=== PATIENT | female | born 1930 | race African-American/Black ===

== ENCOUNTER 2016-10-22 01:17 | Emergency (ER) | payer MEDICARE, BC ==
[2016-10-22] MEDS ORDERED: DOXYCYCLINE HYCLATE 100 MG TABLET PO ONE (03:55)
[2016-10-22] MEDS ORDERED: CEPHALEXIN 500 MG CAPSULE PO ONE (03:55)
--- NOTE | 2016-10-22 03:57 | ER Document Report ---
ED General - General Chief Complaint: L big toe problem Stated Complaint: FEET SWOLLEN Time Seen by Provider: 10/22/16 02:31 Notes: Patient is an 86-year-old female who presents with concerns of a left great toe infection. Patient has been following with a printing equipment mechanic apprentice for this but has not seen a physician in the past 2 months. Her son brought her to the emergency department tonight as he was concerned that there was purulent drainage coming from the toe. The patient herself notes a dull, aching pain to the area that is worsened by palpation or wearing shoes. Nothing improves the pain. She has had similar infections in the past. She has not had any fever or constitutional symptoms. TRAVEL OUTSIDE OF THE [place] IN LAST 30 DAYS: No - Related Data Allergies/Adverse Reactions: No Known Allergies Allergy (Unverified 01/06/13 15:12) Past Medical History - General Information source: Patient, Relative - Social History Smoking Status: Never Smoker Frequency of alcohol use: None Drug Abuse: None Lives with: Family Family History: Reviewed & Not Pertinent Endocrine Medical History: Reports: Hx Diabetes Mellitus Type 2 Renal/ Medical History: Denies: Hx Peritoneal Dialysis Past Surgical History: Reports: Hx Cholecystectomy, Hx Hysterectomy, Hx Orthopedic Surgery - cervicle spine surgery Review of Systems - Review of Systems Notes: Constitutional: Negative for fever. HENT: Negative for sore throat. Eyes: Negative for visual changes. Cardiovascular: Negative for chest pain. Respiratory: Negative for shortness of breath. Gastrointestinal: Negative for abdominal pain, vomiting or diarrhea. Genitourinary: Negative for dysuria. Musculoskeletal: Negative for back pain. Skin: Positive for purulent drainage from the left great toe with a small amount of surrounding erythema to the dorsal surface of this area. Neurological: Negative for headaches, weakness or numbness. 10 point ROS negative except as marked above and in HPI. Physical Exam - Vital signs Vitals: Temp Pulse Resp BP Pulse Ox 98.3 F 93 16 134/65 H 97 10/22/16 01:23 10/22/16 01:23 10/22/16 01:23 10/22/16 01:23 10/22/16 01:23 Interpretation: Normal Notes: PHYSICAL EXAMINATION: GENERAL: Well-appearing, well-nourished and in no acute distress. HEAD: Atraumatic, normocephalic. EYES: sclera anicteric, conjunctiva are normal. ENT: Moist mucous membranes. NECK: Normal range of motion LUNGS: Normal work of breathing HEART: 2+ DP pulses bilaterally. EXTREMITIES: Left toe has purulent drainage expression underneath the nailbed with a small amount of erythema on the dorsal aspect of the toe. NEUROLOGICAL: No focal neurological deficits. Moves all extremities spontaneously and on command. PSYCH: Normal mood, normal affect. SKIN: Warm, Dry, normal turgor, no rashes or lesions noted. Course - Re-evaluation Re-evalutation: 10/22/16 03:54 Patient presents with signs and symptoms consistent with an infected left great toenail bed. Patient is otherwise well in appearance, no acute distress, no evidence of an ascending cellulitis. Strong 2+ DP pulses bilaterally. She will be started on Keflex and doxycycline. No indication for labs or imaging at this time. She already follows with printing equipment mechanic apprentice and have encouraged her to follow-up closely for additional management. At this time will discharge with return precautions and follow-up recommendations. Verbal discharge instructions given a the bedside and opportunity for questions given. Medication warnings reviewed. Patient is in agreement with this plan and has verbalized understanding of return precautions and the need for primary care follow-up in the next 24-72 hours. - Vital Signs Vital signs: Temp Pulse Resp BP Pulse Ox 97.8 F 84 18 129/55 H 99 10/22/16 04:39 10/22/16 04:39 10/22/16 04:39 10/22/16 04:39 10/22/16 04:39 Discharge - Discharge Clinical Impression: Toe infection Condition: Good Disposition: HOME, SELF-CARE Additional Instructions: The rash is likely due to infection of your skin. You need to take the antibiotics as prescribed. Do not stop even if the rash goes away until you have completed all the antibiotics. You should also return if you develop fevers with temperature greater than 101, persistent vomiting, worsening pain, or have any other symptoms that are concerning to you. Prescriptions: Cephalexin Monohydrate [Keflex 500 mg Capsule] 500 mg PO QID #40 capsule Doxycycline Hyclate 100 mg PO BID #20 tablet
[2016-10-22 04:41] VITALS: BP 129/55
== END 2016-10-22 04:39 | disposition home or self-care (01) ==
LOC: ER 01:17
DX: L08.9 Local infection of the skin and subcutaneous tissue, unspecified (principal); E11.9 Type 2 diabetes mellitus without complications
CPT/HCPCS: 99283; A9270 ×2

== ENCOUNTER 2016-10-23 18:35 | Emergency (ER) | payer MEDICARE, BC ==
[2016-10-23 18:47] VITALS: BP 139/61
--- NOTE | 2016-10-23 23:08 | ER Document Report ---
ED Extremity Problem, Lower - General Information source: Patient, Relative - son TRAVEL OUTSIDE OF THE [place] IN LAST 30 DAYS: No - HPI Location: Great Toe - General Chief Complaint: Toe Injury Stated Complaint: FEET SWELLING,TOE PAIN/DRAINAGE Time Seen by Provider: 10/23/16 22:40 Notes: Patient is an 86 year old female with a history of Diabetes Mellitus Type 2 who presents to the ED with complaints of left great toe pain and depression. Patients son states the patient is not eating, drinking or taking her medication for the past 2 days. Patient states she is depressed about her reverse mortgage. Patients reel assembler is aware of her left great toe infection. Patient states she has a PCP but that he is not aware of her current depression. No other concerns or complaints at this time. PCP: Dr. Frias ([facility]) - Related Data Allergies/Adverse Reactions: No Known Allergies Allergy (Unverified 01/06/13 15:12) Past Medical History - General Information source: Patient - Social History Smoking Status: Unknown if Ever Smoked Family History: Reviewed & Not Pertinent Patient has suicidal ideation: No Patient has homicidal ideation: No Endocrine Medical History: Reports: Hx Diabetes Mellitus Type 2 Renal/ Medical History: Denies: Hx Peritoneal Dialysis Past Surgical History: Reports: Hx Cholecystectomy, Hx Hysterectomy, Hx Orthopedic Surgery - cervicle spine surgery Review of Systems - Review of Systems Constitutional: No symptoms reported EENT: No symptoms reported Cardiovascular: No symptoms reported Respiratory: No symptoms reported Gastrointestinal: No symptoms reported Genitourinary: No symptoms reported Female Genitourinary: No symptoms reported Musculoskeletal: See HPI, Other - left great toe pain Skin: No symptoms reported Hematologic/Lymphatic: No symptoms reported Neurological/Psychological: See HPI, Depression Physical Exam - General General appearance: Appears well, Alert In distress: None - HEENT Head: Normocephalic, Atraumatic Eyes: Normal Extraocular movements intact: Yes Pupils: PERRL - Respiratory Respiratory status: No respiratory distress - Cardiovascular Rhythm: Regular - Abdominal Inspection: Normal - Back Back: Normal - Extremities General upper extremity: Normal inspection, Normal ROM General lower extremity: Normal ROM. No: Normal inspection - see foot exam below Foot: Other - purulent drainage under left great toenail, no erythema - Neurological Neuro grossly intact: Yes Cognition: Normal Orientation: AAOx4 Heladio Coma Scale Eye Opening: Spontaneous [place] Coma Scale Verbal: Oriented Heladio Coma Scale Motor: Obeys Commands Heladio Coma Scale Total: 15 Speech: Normal - Psychological Associated symptoms: Normal affect, Normal mood - Skin Skin Temperature: Warm Skin Moisture: Dry Skin Color: Normal Course - Re-evaluation Re-evalutation: 10/24/16 Patient was infection under her now which she states her doctor is aware of. Patient states that she will take her medications. Patient states that she is recently been depressed and will adjust this with her primary doctor. Patient son agrees to take her home as she eats and takes her medications here in the emergency department. No evidence for worsening infection. Stable for discharge. Follow-up with PMD and reel assembler as instructed. (GENTRY BRADEN) - Vital Signs Vital signs: Temp Pulse Resp BP Pulse Ox 98.3 F 96 13 139/61 H 100 10/23/16 18:46 10/23/16 18:46 10/23/16 18:46 10/23/16 18:46 10/23/16 18:46 Discharge - Discharge Clinical Impression: Toe infection Depression Qualifiers: Depression Type: unspecified Qualified Code(s): F32.9 - Major depressive disorder, single episode, unspecified Condition: Stable Disposition: HOME, SELF-CARE Instructions: Depression ([facility]), Infections ([facility]) Additional Instructions: Please take your medications as prescribed. Please make sure that you are eating and drinking at home. Please follow-up with your primary doctor and your reel assembler this week. Scribe Attestation: 10/24/16 04:01 I personally performed the services described in the documentation, reviewed and edited the documentation which was dictated to the scribe in my presence, and it accurately records my words and actions. (GENTRY BRADEN) Scribe Documentation - Scribe Written by Nirmala:: nirmala Glass, 10/23/2016, [id number] acting as scribe for :: Gerry
[2016-10-23] MEDS ORDERED: DOXYCYCLINE HYCLATE 100 MG TABLET PO ONE (23:51)
== END 2016-10-24 00:35 | disposition home or self-care (01) ==
LOC: ER 18:35
DX: L08.9 Local infection of the skin and subcutaneous tissue, unspecified (principal); F32.9 Major depressive disorder, single episode, unspecified; E11.9 Type 2 diabetes mellitus without complications; Z90.49 Acquired absence of other specified parts of digestive tract; Z90.710 Acquired absence of both cervix and uterus
CPT/HCPCS: 99283; A9270

== ENCOUNTER 2016-10-26 01:59 | Emergency (ER) | payer MEDICARE, BC ==
--- NOTE | 2016-10-26 03:09 | ER Document Report ---
ED General - General Chief Complaint: Shortness Of Breath Stated Complaint: SHORTNESS OF BREATH Time Seen by Provider: 10/26/16 02:25 Notes: Patient is a 86-year-old female presents with complaint of feeling like she is constipated. Patient says she has not been eating much over the last week because she feels constipated. She says she has not had a bowel movement over week. Her daughter is at the bedside and says that she thinks she is on her bowel but she has not been eating. Patient denies abdominal pain. She denies any vomiting. Patient also mentioned that she did have a brief episode tonight where she felt like her breath was being taken away from her. She said she may have had very minimal chest pain associated with the. Patient says when this episode occurred she was emotionally upset at that time. She has no history of coronary disease or heart attacks. She denies recent fevers or infections. I did review her recent visits. She has been seen here recently for depression and also because she has not been eating as much. TRAVEL OUTSIDE OF THE [place] IN LAST 30 DAYS: No - Related Data Allergies/Adverse Reactions: No Known Allergies Allergy (Unverified 01/06/13 15:12) Past Medical History - Social History Smoking Status: Never Smoker Frequency of alcohol use: None Drug Abuse: None Family History: Reviewed & Not Pertinent Patient has suicidal ideation: No Patient has homicidal ideation: No Endocrine Medical History: Reports: Hx Diabetes Mellitus Type 2 Renal/ Medical History: Denies: Hx Peritoneal Dialysis Past Surgical History: Reports: Hx Cholecystectomy, Hx Hysterectomy, Hx Orthopedic Surgery - cervicle spine surgery Review of Systems - Review of Systems Notes: My Normal Review Basic REVIEW OF SYSTEMS: CONSTITUTIONAL : Denies fever, chills, or sweats. Denies recent illness. EENT: Denies eye, ear, throat, or mouth pain or symptoms. Denies nasal or sinus congestion. CARDIOVASCULAR: Tightness which has resolved. RESPIRATORY: Brief episode of shortness of breath which is now resolved. GASTROINTESTINAL: Denies abdominal pain. Denies nausea, vomiting, or diarrhea. Complains of constipation. GENITOURINARY: Denies difficulty urinating, painful urination, burning, frequency, or blood in urine. MUSCULOSKELETAL: Denies neck or back pain or joint pain or swelling. SKIN: Denies rash or skin lesions. NEUROLOGICAL: Denies altered mental status or loss of consciousness. Denies headache. Denies weakness or paralysis or loss of use of either side. Denies problems with gait or speech. Denies sensory or motor loss. ALL OTHER SYSTEMS REVIEWED AND NEGATIVE. Physical Exam - Vital signs Vitals: Temp Pulse Resp BP Pulse Ox 98.1 F 99 20 158/61 H 98 10/26/16 02:12 10/26/16 02:12 10/26/16 02:12 10/26/16 02:12 10/26/16 02:12 - Notes Notes: General Appearance: Well nourished, alert, cooperative, no acute distress, no obvious discomfort. Vitals: reviewed, See vital signs table. Head: no swelling or tenderness to the head Eyes: PERRL, EOMI, Conjuctiva clear Mouth: No decreasd moisture Throat: No tonsillar inflammation, No airway obstruction, No lymphadenopathy Neck: Supple, no neck tenderness, No thyromegaly Lungs: No wheezing, No rales, No rhonci, No accessory muscle use, good air exchange bilaterally. Heart: Normal rate, Regular rythm, No murmur, no rub Abdomen: Normal BS, soft, No rigidity, No abdominal tenderness, No guarding, no rebound, no abdominal masses, no organomegaly Rectal: No stool in rectal vault. Extremities: strength 5/5 in all extremities, good pulses in all extremities, no swelling or tenderness in the extremities, no edema. Skin: warm, dry, appropriate color, no rash Neuro: speech clear, oriented x 3, normal affect, responds appropriately to questions. Course - Re-evaluation Re-evalutation: 10/26/16 05:49 Patient's laboratory evaluation did show dehydration which is expected being that she has not been eating or drinking recently. We will back informed her that she does not really have a lot of stool burden on her x-ray. I told her that she is not constipated and that she really needs to eat in order for her bowels to start moving again. She has no evidence of obstruction on exam or on the x-ray. She looks well. I did give her a liter of IV fluids here. I informed her and her daughter that extremely important that she does eat and drink. Patient did have a brief episode of shortness of breath and mild chest tightness earlier tonight. He said this did coincide when she was feeling emotional. Her cardiac enzymes were negative. Her EKG is negative. I do not think she needs to be admitted for wall of coronary disease. I do not think to be much benefit from that at her age of 86 and also being that the symptoms seem to be dissipated by an emotional event. Patient is strongly encouraged to return to ER if she does have recurrent chest pain or difficulty breathing, if she has vomiting, if she feels that she is becoming dehydrated again, or she has any abdominal pain. Patient agrees with plan and will be discharged home. Dictation of this chart was performed using voice recognition software; therefore, there may be some unintended grammatical errors. - Vital Signs Vital signs: Temp Pulse Resp BP Pulse Ox 98.1 F 99 16 158/50 H 100 10/26/16 02:12 10/26/16 02:12 10/26/16 05:01 10/26/16 05:01 10/26/16 05:01 - Laboratory Result Diagrams: 10/26/16 03:20 10/26/16 03:20 Laboratory results interpreted by me: 10/26/16 10/26/16 03:20 03:20 MCHC 31.9 L RDW 14.9 H Carbon Dioxide 17 L BUN 29 H Creatinine 2.04 H Est GFR ( Amer) 28 L Est GFR (Non-Af Amer) 23 L Direct Bilirubin 0.6 H - EKG Interpretation by Me Additional EKG results interpreted by me: 10/26/16 03:08 EKG is reviewed and interpreted by me. EKG shows normal sinus rhythm with rate of [address] segment elevation or depression. No ischemic T-wave inversions. MT interval, QRS duration and normal range. QTc interval is prolonged. Discharge - Discharge Clinical Impression: Dehydration, Renal insufficiency, mild Condition: Good Disposition: HOME, SELF-CARE Additional Instructions: Please return to the ER immediately if you have vomiting, any recurrent chest pain, any difficulty breathing, or if you feel unwell. Please follow up closely with your primary care doctor for close reevaluation. Please be sure to eat and drink water. Referrals: MALA LECHUGA MD [Primary Care Provider] - Follow up in 3-5 days
--- NOTE | 2016-10-26 03:20 | RADIOLOGY REPORT (SQ) ---
EXAM DESCRIPTION: KUB/ABDOMEN (SINGLE VIEW) COMPLETED DATE/TIME: 10/26/2016 2:48 am REASON FOR STUDY: constipation COMPARISON: 10/26/2016. NUMBER OF VIEWS: One view. TECHNIQUE: Supine radiographic image of the abdomen acquired. LIMITATIONS: None. FINDINGS: BOWEL GAS PATTERN: Normal bowel gas pattern. No dilated loops. CALCIFICATIONS: Atherosclerosis. SOFT TISSUES: No gross mass or suggestion of organomegaly. HARDWARE: None in the abdomen. BONES: Moderate vacuum disc desiccation of the lower lumbar spine between the L2 and S1 levels. Mild osteoarthritis of bilateral hips. OTHER: Likely skin fold artifact of the right upper abdominal quadrant as correlated with concurrent upright chest radiographs. IMPRESSION: NO RADIOGRAPHIC EVIDENCE FOR ACUTE ABDOMINAL DISEASE. TECHNICAL DOCUMENTATION: JOB ID: [id number] [employer]- All Rights Reserved
--- NOTE | 2016-10-26 03:21 | RADIOLOGY REPORT (SQ) ---
EXAM DESCRIPTION: CHEST SINGLE VIEW COMPLETED DATE/TIME: 10/26/2016 2:53 am REASON FOR STUDY: chest pain COMPARISON: None. EXAM PARAMETERS: NUMBER OF VIEWS: One view. TECHNIQUE: Single frontal radiographic view of the chest acquired. RADIATION DOSE: NA LIMITATIONS: None. FINDINGS: LUNGS AND PLEURA: No opacities, masses or pneumothorax. No pleural effusion. MEDIASTINUM AND HILAR STRUCTURES: No masses. Contour normal. HEART AND VASCULAR STRUCTURES: Heart normal in size. Atherosclerosis. BONES: No acute findings. HARDWARE: None in the chest. OTHER: No other significant finding. IMPRESSION: No acute cardiopulmonary findings. TECHNICAL DOCUMENTATION: JOB ID: [id number]
[2016-10-26 03:29] LABS: ABSOLUTE BASOPHILS # (AUTO) 0.1 10^3/uL (0.0-0.2); ABSOLUTE LYMPHOCYTES (AUTO) 1.1 10^3/uL (0.5-4.7); ABSOLUTE MONOCYTES (AUTO) 0.6 10^3/uL (0.1-1.4); ABSOLUTE NEUT (AUTO) 4.3 10^3/uL (1.7-8.2); EOSINOPHILS % (AUTO) 0.3 % (0-6); HEMATOCRIT 37.8 % (36.0-47.0); HEMOGLOBIN 12.1 g/dL (12.0-15.5); HGB HCT DIFFERENCE -1.5; LYMPHOCYTES % (AUTO) 17.9 % (13-45); MEAN CORPUSCULAR HEMOGLOBIN 27.6 pg (27.0-33.4); MEAN CORPUSCULAR HGB CONC 31.9 g/dL (32.0-36.0); MEAN CORPUSCULAR VOLUME 86 fl (80-97); MONOCYTES % (AUTO) 10.1 % (3-13); RED BLOOD COUNT 4.38 10^6/uL (3.72-5.28); RED CELL DISTRIBUTION WIDTH 14.9 % (11.5-14.0); SEGMENTED NEUTROPHILS % (AUTO) 70.7 % (42-78); WHITE BLOOD COUNT 6.1 10^3/uL (4.0-10.5)
[2016-10-26 03:50] LABS: ALANINE AMINOTRANSFERASE 23 U/L (9-52); ALBUMIN 4.1 g/dL (3.5-5.0); ALKALINE PHOSPHATASE 82 U/L (38-126); ANION GAP 19 (5-19); ASPARTATE AMINO TRANSFERASE 29 U/L (14-36); BILIRUBIN,DIRECT 0.6 mg/dL (0.0-0.4); BILIRUBIN,TOTAL 0.7 mg/dL (0.2-1.3); BLOOD UREA NITROGEN 29 mg/dL (7-20); CALCIUM 9.7 mg/dL (8.4-10.2); CARBON DIOXIDE 17 mmol/L (22-30); CHLORIDE 106 mmol/L (98-107); CREATINE KINASE 54 U/L (30-135); CREATININE RESULT 2.04 mg/dL (0.52-1.25); GLUCOSE 83 mg/dL (75-110); POTASSIUM 4.6 mmol/L (3.6-5.0); SODIUM 141.5 mmol/L (137-145); TOTAL PROTEIN 7.5 g/dL (6.3-8.2)
[2016-10-26 04:02] LABS: CREATINE KINASE MB 1.12 ng/mL (<4.55); TROPONIN I 0.028 ng/mL
[2016-10-26] MEDS ORDERED: NORMAL SALINE 1000 ML 1,000 ML IV ONE (04:32)
[2016-10-26 05:40] VITALS: BP 158/50
--- NOTE | 2016-10-26 09:16 | EKG REPORT ---
SEVERITY:- ABNORMAL ECG - SINUS RHYTHM SHORT OH INTERVAL, ACCELERATED AV CONDUCTION LEFT ANTERIOR FASCICULAR BLOCK OLD ANTERIOR SD BORDERLINE PROLONGED QT INTERVAL : Confirmed by: Brando Bui MD 26-Oct-2016 09:15:42
== END 2016-10-26 06:03 | disposition home or self-care (01) ==
LOC: ER 01:59
DX: E86.0 Dehydration (principal); N28.9 Disorder of kidney and ureter, unspecified; R07.89 Other chest pain; R06.02 Shortness of breath; R19.8 Other specified symptoms and signs involving the digestive system and abdomen; E11.9 Type 2 diabetes mellitus without complications
CPT/HCPCS: 36415; 71010; 74000; 80053; 82550; 82553; 84484; 85025; 93005; 93010; 99285

== ENCOUNTER 2017-07-23 16:01 | Emergency (ER) | payer MEDICARE, BC ==
--- NOTE | 2017-07-23 17:36 | ER Document Report ---
ED Medical Screen (RME) - General Chief Complaint: Altered Mental Status Stated Complaint: ALTERED MENTAL STATUS Time Seen by Provider: 07/23/17 17:29 TRAVEL OUTSIDE OF THE [place] IN LAST 30 DAYS: No - HPI Notes: 07/23/17 17:32 Patient is an 87-year-old female with a history of Alzheimer's dementia, hypertension, peripheral vascular disease (on Plavix) who presents to the ED with daughter with concern of changes in behavior over the last several days. Daughter states that she has not been eating as much food and has not been taking her medicines which is unlike her. Daughter also states that she has had intermittent sharp headaches on the right side. Daughter states that the last time she acted like this was when she had a urinary infection. Daughter states that she does like to hold her urine for long periods of time. She otherwise has not had any other recent illness. Denies any recent falls. No prev h/o CVA, [place]. Per daughter as well: Denies any fever, head injury, neck pain, URI, sore throat, chest pain, REEDER, palpitations, syncope, cough, shortness of breath, wheeze, dyspnea, abdominal pain, nausea/vomiting/diarrhea, loss of control of bowel or bladder, muscle paralysis/weakness, or rash. I have treated and performed a rapid initial assessment of this patient. A comprehensive ED assessment and evaluation of the patient, analysis of test results and completion of medical decision making process will be conducted by additional ED providers. PHYSICAL EXAMINATION: GENERAL: Well-appearing, well-nourished and in no acute distress. Alert, pleasant, smiling, happy. Answers questions appropriately within reason for her dementia. Eyes: PERRLA, EOMI. LUNGS: Breath sounds clear to auscultation bilaterally and equal. No wheezes rales or rhonchi. HEART: Regular rate and rhythm Extremities: No cyanosis, clubbing, or edema b/l. NEUROLOGICAL: Normal speech. Cranial nerves grossly intact. PSYCH: Normal mood, normal affect. - Related Data Allergies/Adverse Reactions: No Known Allergies Allergy (Verified 07/23/17 16:03) Past Medical History Endocrine Medical History: Reports: Hx Diabetes Mellitus Type 2 Renal/ Medical History: Denies: Hx Peritoneal Dialysis Past Surgical History: Reports: Hx Cholecystectomy, Hx Hysterectomy, Hx Orthopedic Surgery - cervicle spine surgery - Immunizations Hx Diphtheria, Pertussis, Tetanus Vaccination: Yes Physical Exam - Vital signs Vitals: Temp Pulse Resp BP Pulse Ox 98.1 F 96 18 194/73 H 100 07/23/17 16:08 07/23/17 16:08 07/23/17 16:08 07/23/17 16:08 07/23/17 16:08 Course - Vital Signs Vital signs: Temp Pulse Resp BP Pulse Ox 98.1 F 96 18 194/73 H 100 07/23/17 16:08 07/23/17 16:08 07/23/17 16:08 07/23/17 16:08 07/23/17 16:08
[2017-07-23 18:23] LABS: ABSOLUTE BASOPHILS # (AUTO) 0.1 10^3/uL (0.0-0.2); ABSOLUTE EOSINOPHILS # (AUTO) 0.1 10^3/uL (0.0-0.6); ABSOLUTE MONOCYTES (AUTO) 0.5 10^3/uL (0.1-1.4); BASOPHILS % (AUTO) 0.9 % (0-2); EOSINOPHILS % (AUTO) 1.1 % (0-6); HEMATOCRIT 33.2 % (36.0-47.0); HEMOGLOBIN 10.9 g/dL (12.0-15.5); LYMPHOCYTES % (AUTO) 15.3 % (13-45); MEAN CORPUSCULAR HEMOGLOBIN 28.4 pg (27.0-33.4); MEAN CORPUSCULAR HGB CONC 32.7 g/dL (32.0-36.0); MEAN CORPUSCULAR VOLUME 87 fl (80-97); MONOCYTES % (AUTO) 7.3 % (3-13); PLATELET COUNT 408 10^3/uL (150-450); RED BLOOD COUNT 3.82 10^6/uL (3.72-5.28); RED CELL DISTRIBUTION WIDTH 14.5 % (11.5-14.0); SEGMENTED NEUTROPHILS % (AUTO) 75.4 % (42-78); TOTAL CELLS COUNTED % (AUTO) 100 %; WHITE BLOOD COUNT 6.7 10^3/uL (4.0-10.5)
--- NOTE | 2017-07-23 18:30 | RADIOLOGY REPORT (SQ) ---
EXAM DESCRIPTION: CT HEAD WITHOUT COMPLETED DATE/TIME: 07/23/2017 6:12 pm REASON FOR STUDY: AMS per family COMPARISON: None. TECHNIQUE: Axial images acquired through the brain without intravenous contrast. Images reviewed wi th bone, brain and subdural windows. Additional sagittal and coronal reconstructions were generated. Images stored on PACS. All CT scanners at this facility use dose modulation, iterative reconstruction, and/or weight based d osing when appropriate to reduce radiation dose to as low as reasonably achievable (ALARA). [facility]: Dose Right [facility]: CareDose [facility]: Dose Right [facility]: Teradose 4D [facility]: [employer] RADIATION DOSE: CT Rad equipment meets quality standard of care and radiation dose reduction techniq ues were employed. CTDIvol: 53.2 mGy. DLP: 937 mGy-cm. mGy. LIMITATIONS: None. FINDINGS: VENTRICLES: Normal size and contour. CEREBRUM: No masses. No hemorrhage. No midline shift. No evidence for acute infarction. Few scatte red areas of low density in the white matter most likely chronic small vessel ischemic changes. CEREBELLUM: No masses. No hemorrhage. No alteration of density. No evidence for acute infarction. EXTRAAXIAL SPACES: No fluid collections. No masses. ORBITS AND GLOBE: No intra- or extraconal masses. Normal contour of globe without masses. CALVARIUM: No fracture. PARANASAL SINUSES: No fluid or mucosal thickening. SOFT TISSUES: No mass or hematoma. OTHER: No other significant finding. IMPRESSION: MILD CHRONIC MICROVASCULAR ISCHEMIA. NO ACUTE IMAGING FINDINGS IN THE BRAIN. EVIDENCE OF ACUTE STROKE: NO. COMMENT: Quality ID # [id number]: Final reports with documentation of one or more dose reduction techniques (e.g., Automated exposure control, adjustment of the mA and/or kV according to patient size, use of iterative reconstruction technique) TECHNICAL DOCUMENTATION: JOB ID: [id number] [employer]- All Rights Reserved Reading location - IP/workstation name: [email or web address]
[2017-07-23 18:37] LABS: INTERNATIONAL RATION (INR) 0.91
[2017-07-23 18:38] LABS: PARTIAL THROMBOPLASTIN TIME 36.7 SEC (23.5-35.8)
[2017-07-23 18:49] LABS: ALANINE AMINOTRANSFERASE 16 U/L (9-52); ALBUMIN 4.5 g/dL (3.5-5.0); ALKALINE PHOSPHATASE 117 U/L (38-126); ANION GAP 14 (5-19); APPEARANCE,URINE SLIGHTLY-CLOUDY; ASPARTATE AMINO TRANSFERASE 27 U/L (14-36); BILIRUBIN,DIRECT 0.4 mg/dL (0.0-0.4); BILIRUBIN,TOTAL 0.5 mg/dL (0.2-1.3); BILIRUBIN,URINE NEGATIVE (NEGATIVE); BLOOD UREA NITROGEN 15 mg/dL (7-20); CALCIUM 9.8 mg/dL (8.4-10.2); CARBON DIOXIDE 24 mmol/L (22-30); CHLORIDE 101 mmol/L (98-107); COLOR,URINE YELLOW; GLUCOSE 167 mg/dL (75-110); GLUCOSE, URINE NEGATIVE (NEGATIVE); KETONES,URINE NEGATIVE (NEGATIVE); LEUKOCYTE ESTERASE,URINE LARGE (NEGATIVE); NITRITE,URINE NEGATIVE (NEGATIVE); POTASSIUM 4.7 mmol/L (3.6-5.0); PROTEIN,URINE 100 mg/dL (NEGATIVE); SODIUM 138.8 mmol/L (137-145); UROBILINOGEN,URINE NEGATIVE mg/dL (<2.0)
--- NOTE | 2017-07-23 19:14 | ER Document Report ---
ED General - General Chief Complaint: Altered Mental Status Stated Complaint: ALTERED MENTAL STATUS Time Seen by Provider: 07/23/17 17:29 Notes: 87-year-old female. History of dementia. Increasing mental status issues as of recent. More confused. Today she was at [employer] restaurant and did not want to leave. Took her daughter approximately 2 hours to convince her they needed to go. They missed a doctor's appointment. She was recently seen in the emergency department in the [facility] area. She had a head CT which was unremarkable but no labs her urinalysis was obtained. Daughter states that she has had altered mental status before from urinary tract infections as well as some electrolyte abnormalities. Patient denies any complaints at this time. States that she was recently forced to move to [place] from her home town of [facility] because her daughter needed to be with her at all times. Patient is unhappy about having to leave her home town and would rather be back here. She is also does not want to take any of her regular medications. Daughter states that it is full-time job getting her to take her medications. Had a recent stent placed in the right iliac artery and is scheduled to have a stent in the left iliac artery due to arteriosclerosis with moderate occlusion. TRAVEL OUTSIDE OF THE U[place] IN LAST 30 DAYS: No - Related Data Allergies/Adverse Reactions: No Known Allergies Allergy (Verified 07/23/17 16:03) Past Medical History - General Information source: Patient, Relative - Social History Smoking Status: Never Smoker Chew tobacco use (# tins/day): No Frequency of alcohol use: None Drug Abuse: None Lives with: Family Family History: Reviewed & Not Pertinent Patient has suicidal ideation: No Patient has homicidal ideation: No - Past Medical History Cardiac Medical History: Reports: Hx Hypercholesterolemia Endocrine Medical History: Reports: Hx Diabetes Mellitus Type 2 Renal/ Medical History: Denies: Hx Peritoneal Dialysis Psychiatric Medical History: Reports: Hx Depression Past Surgical History: Reports: Hx Cholecystectomy, Hx Hysterectomy, Hx Orthopedic Surgery - cervicle spine surgery, Hx Vascular Surgery - Immunizations Hx Diphtheria, Pertussis, Tetanus Vaccination: Yes Review of Systems - Review of Systems Constitutional: No symptoms reported EENT: No symptoms reported Cardiovascular: No symptoms reported Respiratory: No symptoms reported Gastrointestinal: No symptoms reported Genitourinary: No symptoms reported Female Genitourinary: No symptoms reported Musculoskeletal: No symptoms reported Skin: No symptoms reported Hematologic/Lymphatic: No symptoms reported Neurological/Psychological: No symptoms reported Physical Exam - Vital signs Vitals: Temp Pulse Resp BP Pulse Ox 98.1 F 96 18 194/73 H 100 07/23/17 16:08 07/23/17 16:08 07/23/17 16:08 07/23/17 16:08 07/23/17 16:08 Interpretation: Normal - General General appearance: Appears well, Alert - HEENT Head: Normocephalic, Atraumatic Eyes: Normal Pupils: PERRL - Respiratory Respiratory status: No respiratory distress Chest status: Nontender Breath sounds: Normal Chest palpation: Normal - Cardiovascular Rhythm: Regular Heart sounds: Normal auscultation Murmur: No - Abdominal Inspection: Normal Distension: No distension Bowel sounds: Normal Tenderness: Nontender Organomegaly: No organomegaly - Back Back: Normal, Nontender - Extremities General upper extremity: Normal inspection, Nontender, Normal color, Normal ROM , Normal temperature General lower extremity: Normal inspection, Nontender, Normal color, Normal ROM , Normal temperature, Normal weight bearing, Other - Slightly diminished pulses of the left dorsalis pedis. Right dorsalis pedis and posterior tibialis palpable. No cold extremities though. Warm bilaterally. No open lesions.. No : Maria Esther's sign - Neurological Neuro grossly intact: Yes Cognition: Short term memory loss Heladio Coma Scale Eye Opening: Spontaneous Heladio Coma Scale Verbal: Oriented [place] Coma Scale Motor: Obeys Commands [place] Coma Scale Total: 15 Speech: Normal Motor strength normal: LUE, RUE, LLE, RLE Sensory: Normal Notes: No obvious gross neurological deficits appreciated. Patient does have short- term memory deficit but otherwise unremarkable. - Psychological Associated symptoms: Normal affect, Normal mood - Skin Skin Temperature: Warm Skin Moisture: Dry Skin Color: Normal Course - Re-evaluation Re-evalutation: 07/23/17 19:14 This is a delightful 87-year-old pleasantly demented patient in no acute distress at this time with evidence of a UTI. Labs are pretty much at baseline. No evidence of CVA. Neurological exam unremarkable. No fever. This time will treat with some antibiotics as an outpatient. First dose today. Will have culture added. Advised to follow-up with regular doctor. Family members are comfortable with this plan. Will DC shortly. - Vital Signs Vital signs: Temp Pulse Resp BP Pulse Ox 98.1 F 96 18 194/73 H 100 07/23/17 16:08 07/23/17 16:08 07/23/17 16:08 07/23/17 16:08 07/23/17 16:08 - Laboratory Result Diagrams: 07/23/17 17:50 07/23/17 17:50 Laboratory results interpreted by me: 07/23/17 07/23/17 07/23/17 17:50 17:50 17:50 Hgb 10.9 L Hct 33.2 L RDW 14.5 H APTT 36.7 H Creatinine 1.56 H Est GFR ( Amer) 38 L Est GFR (Non-Af Amer) 31 L Glucose 167 H Urine Protein Urine Blood Ur Leukocyte Esterase 07/23/17 17:50 Hgb Hct RDW APTT Creatinine Est GFR ( Amer) Est GFR (Non-Af Amer) Glucose Urine Protein 100 H Urine Blood SMALL H Ur Leukocyte Esterase LARGE H Discharge - Discharge Clinical Impression: Urinary tract infection Qualifiers: Urinary tract infection type: site unspecified Hematuria presence: without hematuria Qualified Code(s): N39.0 - Urinary tract infection, site not specified Dementia Qualifiers: Dementia type: unspecified type Dementia behavioral disturbance: without behavioral disturbance Qualified Code(s): F03.90 - Unspecified dementia without behavioral disturbance Condition: Good Disposition: HOME, SELF-CARE Instructions: Nitrofurantoin ([facility]), Urinary Tract Infection ([facility]), High Blood Pressure, Requiring Treatment ([facility]) Additional Instructions: Dementia The exam shows a decrease in mental ability called dementia. Signs of dementia include a gradual loss of memory and a decreased ability to reason and solve problems. Personality changes, hostility, lack of self-care, and loss of bladder or bowel control are later signs of dementia. In these later stages, patients may become confused, lost, fearful, or agitated, even in familiar places. Alzheimer's disease is the most common type of dementia. It has no known cause or specific treatment. Other causes include alcohol and drug abuse, medication effects (especially tranquilizers and sleeping pills), strokes, head injuries, and brain tumors. Sometimes severe depression in an elderly person is mistaken for dementia, and this can be treated if recognized. A complete medical evaluation and ongoing care with a doctor is important. Most people with dementia need help or supervision with daily living. Some may be able to live independently with occasional help; others require foster care or even senior living placement. Alcohol, sedatives, and antihistamines may make the symptoms worse and should be avoided. Alzheimer's disease support groups are available in some communities and can be very valuable to the entire family. Prescription medication can ease the symptoms of Alzheimer's disease in some patients. Please arrange for medical follow-up. Return here if there is a sudden change in mental function, inability to move an arm or leg, inability to speak, fever, or any other significant change. Prescriptions: Amlodipine Besylate 5 mg PO Q12H #60 tab Nitrofurantoin/Nitrofuran Mac [Macrobid 100 mg Capsule] 1 tab PO BID #20 capsule Referrals: NELLIE BEAVER MD [NO LOCAL MD] - Follow up in 3-5 days
[2017-07-23] MEDS ORDERED: NITROFURANTOIN MONOHYD/M-CRYST 100 MG CAPSULE PO ONE (19:15)
[2017-07-23] MEDS ORDERED: CLONIDINE HCL 0.1 MG TABLET PO ONE (19:28)
[2017-07-23] MEDS ORDERED: DIAZEPAM 5 MG TABLET PO ONE (19:30)
[2017-07-23 21:05] VITALS: BP 155/78
== END 2017-07-23 21:05 | disposition home or self-care (01) ==
LOC: ER 16:01
DX: N39.0 Urinary tract infection, site not specified (principal); F03.90 Unspecified dementia, unspecified severity, without behavioral disturbance, psychotic disturbance, mood disturbance, and anxiety; E78.00 Pure hypercholesterolemia, unspecified; I10 Essential (primary) hypertension; Z90.49 Acquired absence of other specified parts of digestive tract; Z90.710 Acquired absence of both cervix and uterus; Z79.899 Other long term (current) drug therapy
CPT/HCPCS: 99285; 36415; 87086; 83735; 85025; 85610; 85730; 87088; 80053; 81001; 87186; 70450; A9270 ×3; J8499

== ENCOUNTER 2017-07-24 13:13 | Inpatient (IN) | payer MEDICARE, BC ==
--- NOTE | 2017-07-24 13:32 | ER Document Report ---
ED General - General Chief Complaint: Urinary Problem Stated Complaint: BLOOD PRESSURE ISSUES Time Seen by Provider: 07/24/17 13:31 Mode of Arrival: Wheelchair Information source: Patient, Parent TRAVEL OUTSIDE OF THE U.S. IN LAST 30 DAYS: No - HPI Notes: 87-year-old female with a past medical history of dementia presents to the ER today by car with her youngest daughter for a recheck of her urine for UTI and blood pressure medication presents today complaining - Related Data Allergies/Adverse Reactions: ciprofloxacin [From Cipro] Allergy (Verified 07/24/17 13:24) Penicillins Allergy (Verified 07/24/17 13:24) Sulfa (Sulfonamide Antibiotics) Allergy (Verified 07/24/17 13:24) Past Medical History - Social History Smoking Status: Never Smoker Frequency of alcohol use: None Drug Abuse: None Family History: Reviewed & Not Pertinent Patient has suicidal ideation: No Patient has homicidal ideation: No - Past Medical History Cardiac Medical History: Reports: Hx Hypercholesterolemia Endocrine Medical History: Reports: Hx Diabetes Mellitus Type 2 Renal/ Medical History: Denies: Hx Peritoneal Dialysis Psychiatric Medical History: Reports: Hx Depression Past Surgical History: Reports: Hx Cholecystectomy, Hx Hysterectomy, Hx Orthopedic Surgery - cervicle spine surgery, Hx Vascular Surgery - Immunizations Hx Diphtheria, Pertussis, Tetanus Vaccination: Yes Physical Exam - Vital signs Vitals: Temp Pulse Resp BP Pulse Ox 98.2 F 113 H 16 216/66 H 100 07/24/17 13:18 07/24/17 13:18 07/24/17 13:18 07/24/17 13:18 07/24/17 13:18 Course - Vital Signs Vital signs: Temp Pulse Resp BP Pulse Ox 98.2 F 113 H 16 216/66 H 100 07/24/17 13:18 07/24/17 13:18 07/24/17 13:18 07/24/17 13:18 07/24/17 13:18
[2017-07-24] MEDS ORDERED: CLONIDINE HCL 0.1 MG TABLET PO ONE (14:11)
[2017-07-24] MEDS ORDERED: VANCOMYCIN HCL INJ 1000 MG VIAL IV ONE (16:04)
[2017-07-24 16:10] LABS: ABSOLUTE BASOPHILS # (AUTO) 0.1 10^3/uL (0.0-0.2); ABSOLUTE LYMPHOCYTES (AUTO) 0.8 10^3/uL (0.5-4.7); ABSOLUTE MONOCYTES (AUTO) 0.5 10^3/uL (0.1-1.4); ABSOLUTE NEUT (AUTO) 4.8 10^3/uL (1.7-8.2); BASOPHILS % (AUTO) 1.2 % (0-2); EOSINOPHILS % (AUTO) 0.5 % (0-6); HEMATOCRIT 32.8 % (36.0-47.0); HEMOGLOBIN 10.8 g/dL (12.0-15.5); LYMPHOCYTES % (AUTO) 12.5 % (13-45); MEAN CORPUSCULAR HEMOGLOBIN 28.8 pg (27.0-33.4); MEAN CORPUSCULAR HGB CONC 32.8 g/dL (32.0-36.0); MEAN CORPUSCULAR VOLUME 88 fl (80-97); MONOCYTES % (AUTO) 7.9 % (3-13); PLATELET COUNT 362 10^3/uL (150-450); RED BLOOD COUNT 3.73 10^6/uL (3.72-5.28); RED CELL DISTRIBUTION WIDTH 14.1 % (11.5-14.0); SEGMENTED NEUTROPHILS % (AUTO) 77.9 % (42-78); TOTAL CELLS COUNTED % (AUTO) 100 %; WHITE BLOOD COUNT 6.1 10^3/uL (4.0-10.5)
[2017-07-24 16:28] LABS: ALANINE AMINOTRANSFERASE 17 U/L (9-52); ALBUMIN 4.3 g/dL (3.5-5.0); ALKALINE PHOSPHATASE 115 U/L (38-126); ANION GAP 14 (5-19); ASPARTATE AMINO TRANSFERASE 27 U/L (14-36); BILIRUBIN,DIRECT 0.5 mg/dL (0.0-0.4); BILIRUBIN,TOTAL 0.5 mg/dL (0.2-1.3); BLOOD UREA NITROGEN 16 mg/dL (7-20); CALCIUM 9.7 mg/dL (8.4-10.2); CARBON DIOXIDE 23 mmol/L (22-30); CHLORIDE 101 mmol/L (98-107); CREATINE KINASE 97 U/L (30-135); GLUCOSE 161 mg/dL (75-110); POTASSIUM 4.6 mmol/L (3.6-5.0); SODIUM 138.3 mmol/L (137-145); TOTAL PROTEIN 7.9 g/dL (6.3-8.2)
[2017-07-24 16:39] LABS: CREATINE KINASE MB 2.11 ng/mL (<4.55)
[2017-07-24 16:43] LABS: TROPONIN I 0.035 ng/mL
[2017-07-24] MEDS ORDERED: ASPIRIN 81 MG TABLET, CHEWABLE PO ONE (16:49)
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
[2017-07-24 17:03] LABS: AMORPHOUS SEDIMENT,URINE TRACE /HPF; APPEARANCE,URINE CLEAR; BILIRUBIN,URINE NEGATIVE (NEGATIVE); COLOR,URINE STRAW; GLUCOSE, URINE NEGATIVE (NEGATIVE); KETONES,URINE NEGATIVE (NEGATIVE); LEUKOCYTE ESTERASE,URINE NEGATIVE (NEGATIVE); NITRITE,URINE NEGATIVE (NEGATIVE); PROTEIN,URINE 30 mg/dL (NEGATIVE); URINE SPECIFIC GRAVITY 1.003; UROBILINOGEN,URINE NEGATIVE mg/dL (<2.0)
--- NOTE | 2017-07-24 17:31 | PSYCHOLOGICAL NOTE ---
Psych Note - Psych Note Psych Note: Reason for consult: Family requested Consult requested:1510 Evaluation: 1515 patient presents to the ED with daughter. patients daughter states patient was seen in the Ed yesterday for HTN and UTI. states was told by PCP to return to the ED for transfer to [place] for 24 hr care d/t UTI. states patient will not take prescriptions at home. patient noted to have discharge paperwork in hand fro yesterday with prescriptions Clinician attempted evaluation on patient. Patient is very pleasant, light and well groomed. Patient is not orientated to person place time or circumstance. She is unable to identify her age, the date, the president, or her birthdate. She is unable to identify safety information such as 911. And demonstrates limited memory during evaluation and frequently states that she has been upset and not feeling well and if she was feeling well she could easily answer the questions. Patient does state that she does not want her daughter in the room during evaluation. Clinician spoke with the patient's daughter separately. Patient's daughter, Kristal, disclosed the patient has a diagnosis of "severe progressive dementia" and since she is been suffering from a UTI has become aggressive. She disclosed the patient refuses to take her medications and is concerned that without continued observation at the hospital to get medical treatment for her UTI patient will continue to decompensate. Medication recommendations made by psychiatric provider Dr. Ana MD includes: 1. Depakote 250mg twice daily for mood stabilization 2. Buspar 5mg every morning and 10mg every evening for anxiety Diagnosis: Dementia UTI Impression/plan: Patient is cleared from acute psychiatric services. Patient is currently diagnosised with dementia and a UTI. Treating physicians are asked to consider not using benzodiazepines (Ativan, Xanax, Valium, Klonopin), antipsychotics (Haldol, Geodon, Zyprexa), some sleep aids (Elavil, Ambien, trazodone at high doses), narcotic pain medications, and steroids (prednisone) as these have been known to cause and/or exacerbate symptoms (aggression, psychosis, paranoia) in patients with neurodegenerative process. Consulted with Dr. Benjamin regarding the management and care of patient.
[2017-07-24] MEDS ORDERED: ACETAMINOPHEN 325 MG TABLET PO PRN (17:40)
--- NOTE | 2017-07-24 18:01 | PDOC H&P ---
History of Present Illness Admission Date/PCP: 07/24/17 17:32 Patient complains of: Confusion, non compliance History of Present Illness: AGUSTINA HURD is a 87 year old female This patient presents to emergency room apparently after having been seen last night in the ER with a diagnosis of UTI. She was prescribed Macrobid but the prescription was not filled. It appears that I was worried about mother's behavior as she has become more combative. She was seen by psych in the emergency room and that she has been cleared from any acute psychosis. Patient was very pleasant when I saw although unable to tell me any information. Psychiatrist suggested avoiding benzodiazepines, narcotics. Steroids and all the agents. Urinalysis shows no evidence of any infection patient has 0 WBCs negative nitrite and negative leukocyte esterase. Her white count is 6000 and aside from a blood glucose of 262 and a creatinine of 1.6 all her other labs are pretty good Past Medical History Cardiac Medical History: Reports: Hyperlipidema Endocrine Medical History: Reports: Diabetes Mellitus Type 2 Psychiatric Medical History: Reports: Depression Past Surgical History Past Surgical History: Reports: Cholecystectomy, Hysterectomy, Orthopedic Surgery - cervicle spine surgery, Vascular Surgery Social History Information Source: [facility] Records - Patient is unable to provide any history Smoking Status: Never Smoker Family History Family History: Reviewed & Not Pertinent Parental Family History Reviewed: No Children Family History Reviewed: No Sibling(s) Family History Reviewed.: No - Patient unable to provide any history Medication/Allergy Home Medications: Unobtainable [Unobtainable] 07/25/17 Allergies/Adverse Reactions: ciprofloxacin [From Cipro] Allergy (Verified 07/24/17 13:24) Penicillins Allergy (Verified 07/24/17 13:24) Sulfa (Sulfonamide Antibiotics) Allergy (Verified 07/24/17 13:24) Physical Exam Vital Signs: Temp Pulse Resp BP Pulse Ox 98.2 F 113 H 16 110/84 100 07/24/17 13:18 07/24/17 13:18 07/24/17 13:18 07/24/17 14:21 07/24/17 13:18 General appearance: PRESENT: thin - Elderly and frail Head exam: PRESENT: atraumatic Ear exam: PRESENT: normal external ear exam Neck exam: ABSENT: carotid bruit, JVD, lymphadenopathy, thyromegaly Respiratory exam: PRESENT: clear to auscultation andrew. ABSENT: rales, rhonchi, wheezes Cardiovascular exam: PRESENT: RRR. ABSENT: diastolic murmur, rubs, systolic murmur Pulses: PRESENT: normal dorsalis pedis pul GI/Abdominal exam: PRESENT: normal bowel sounds, soft. ABSENT: distended, guarding, mass, organolmegaly, rebound, tenderness Rectal exam: PRESENT: deferred Extremities exam: PRESENT: full ROM. ABSENT: calf tenderness, clubbing, pedal edema Neurological exam: PRESENT: alert, awake, oriented to person, oriented to place Results Laboratory Results: Laboratory 07/24/17 07/24/17 07/24/17 15:35 15:35 15:35 WBC 6.1 RBC 3.73 Hgb 10.8 L Hct 32.8 L MCV 88 MCH 28.8 MCHC 32.8 RDW 14.1 H Plt Count 362 Seg Neutrophils % 77.9 Lymphocytes % 12.5 L Monocytes % 7.9 Eosinophils % 0.5 Basophils % 1.2 Absolute Neutrophils 4.8 Absolute Lymphocytes 0.8 Absolute Monocytes 0.5 Absolute Eosinophils 0.0 Absolute Basophils 0.1 Sodium 138.3 Potassium 4.6 Chloride 101 Carbon Dioxide 23 Anion Gap 14 BUN 16 Creatinine 1.61 H Est GFR ( Amer) 37 L Est GFR (Non-Af Amer) 30 L Glucose 161 H Lactic Acid Calcium 9.7 Total Bilirubin 0.5 Direct Bilirubin 0.5 H Neonat Total Bilirubin Not Reportable Neonat Direct Bilirubin Not Reportable Neonat Indirect Bili Not Reportable AST 27 ALT 17 Alkaline Phosphatase 115 Creatine Kinase 97 CK-MB (CK-2) 2.11 Troponin I 0.035 Total Protein 7.9 Albumin 4.3 Urine Color Urine Appearance Urine pH Ur Specific [place] Urine Protein Urine Glucose (UA) Urine Ketones Urine Blood Urine Nitrite Urine Bilirubin Urine Urobilinogen Ur Leukocyte Esterase Urine WBC (Auto) Urine RBC (Auto) U Hyaline Cast (Auto) Urine Bacteria (Auto) Amorphous Sediment Auto Urine Ascorbic Acid 07/24/17 07/24/17 15:35 16:20 WBC RBC Hgb Hct MCV MCH MCHC RDW Plt Count Seg Neutrophils % Lymphocytes % Monocytes % Eosinophils % Basophils % Absolute Neutrophils Absolute Lymphocytes Absolute Monocytes Absolute Eosinophils Absolute Basophils Sodium Potassium Chloride Carbon Dioxide Anion Gap BUN Creatinine Est GFR ( Amer) Est GFR (Non-Af Amer) Glucose Lactic Acid 1.3 Calcium Total Bilirubin Direct Bilirubin Neonat Total Bilirubin Neonat Direct Bilirubin Neonat Indirect Bili AST ALT Alkaline Phosphatase Creatine Kinase CK-MB (CK-2) Troponin I Total Protein Albumin Urine Color STRAW Urine Appearance CLEAR Urine pH 6.0 Ur Specific [place] 1.003 Urine Protein 30 H Urine Glucose (UA) NEGATIVE Urine Ketones NEGATIVE Urine Blood SMALL H Urine Nitrite NEGATIVE Urine Bilirubin NEGATIVE Urine Urobilinogen NEGATIVE Ur Leukocyte Esterase NEGATIVE Urine WBC (Auto) 0 Urine RBC (Auto) 0 U Hyaline Cast (Auto) 1 Urine Bacteria (Auto) 1+ Amorphous Sediment Auto TRACE Urine Ascorbic Acid NEGATIVE EKG Comments: Sinus Rhythm, no acute changes Assessment & Plan - Diagnosis (1) Dehydration Is this a current diagnosis for this admission?: Yes Plan: Patient will be given cautious IV fluid and will recheck labs in a.m. There is no evidence of a urinary tract infection and I would not place this patient on any antibiotics at this time as it is not indicated (2) Type 2 diabetes mellitus Is this a current diagnosis for this admission?: Yes Plan: We will place on sliding scale insulin (3) Dementia Qualifiers: Dementia type: Alzheimer's disease Alzheimer's disease onset: unspecified onset Is this a current diagnosis for this admission?: Yes Plan: Apparently with agitation and patient has been seen by the psychiatric service with no intervention planned Patient baseline is unknown and there was no family present at the time of my exam however she did seem to be appropriate for age and given the fact that she has dementia - Time Time Spent: 30 to 50 Minutes Medications reviewed and adjusted accordingly: Yes Anticipated discharge: Home Within: within 24 hours - Inpatient Certification Based on my medical assessment, after consideration of the patient's comorbidities, presenting symptoms, or acuity I expect that the services needed warrant INPATIENT care.: Yes Medical Necessity: Need For IV Fluids - Plan Summary Plan Summary: Unable to obtain CODE STATUS as patient unable to provide these and no family is available.
--- NOTE | 2017-07-24 21:57 | EKG REPORT ---
SEVERITY:- ABNORMAL ECG - SINUS RHYTHM SHORT TX INTERVAL, ACCELERATED AV CONDUCTION LEFT ANTERIOR FASCICULAR BLOCK LEFT VENTRICULAR HYPERTROPHY ANTERIOR Q WAVES, POSSIBLY DUE TO LVH : Confirmed by: Santos Conner 24-Jul-2017 21:56:46
[2017-07-25 09:16] LABS: ANION GAP 14 (5-19); BLOOD UREA NITROGEN 21 mg/dL (7-20); CALCIUM 9.4 mg/dL (8.4-10.2); CARBON DIOXIDE 19 mmol/L (22-30); CHLORIDE 105 mmol/L (98-107); GLUCOSE 143 mg/dL (75-110); POTASSIUM 4.5 mmol/L (3.6-5.0); SODIUM 137.9 mmol/L (137-145)
[2017-07-25] MEDS: DOCUSATE SODIUM 100 MG CAPSULE PO SCH (10:22)
[2017-07-25] MEDS: ENOXAPARIN SODIUM INJ 30 MG/0.3 ML DISP.SYRIN SUBCUT SCH (10:23)
[2017-07-25] MEDS: DEXTROSE 5%-1/2 NORMAL SALINE 1,000 ML IV PRN (10:28)
[2017-07-25] MEDS ORDERED: AMLODIPINE BESYLATE 5 MG TABLET PO ONE (12:15)
[2017-07-25] MEDS ORDERED: (PENDING PHARMACY ID) (Cyclobenzaprine Hcl [Flexeril 5 Mg Tablet] 5 MG) PO PRN (15:19)
[2017-07-25] MEDS ORDERED: GABAPENTIN 100 MG CAPSULE PO PRN (15:19)
[2017-07-25] MEDS ORDERED: DIAZEPAM 5 MG TABLET PO PRN (15:19)
[2017-07-25] MEDS ORDERED: CYCLOBENZAPRINE HCL 10 MG TABLET PO PRN (15:26)
--- NOTE | 2017-07-25 17:07 | PDOC PROGRESS REPORT ---
Subjective Progress Note for:: 07/25/17 Subjective:: Patient is seen on rounds. She is resting in bed. She denies any complaints. Daughters are at bedside. Patient remains disoriented but improvefd according to daughters. They are requesting to talk to social workers about care options for home or placement Reason For Visit: DEHYDRATION Physical Exam Vital Signs: Temp Pulse Resp BP Pulse Ox 98.1 F 87 18 151/55 H 99 07/25/17 11:44 07/25/17 11:44 07/25/17 11:44 07/25/17 11:44 07/25/17 11:44 Intake & Output 07/24/17 07/25/17 07/26/17 06:59 06:59 06:59 Weight 44.2 kg General appearance: PRESENT: no acute distress, thin, well-developed Head exam: PRESENT: atraumatic, normocephalic Eye exam: PRESENT: conjunctiva pink, EOMI, PERRLA. ABSENT: scleral icterus Ear exam: PRESENT: normal external ear exam Mouth exam: PRESENT: moist, tongue midline Teeth exam: PRESENT: edentulous Neck exam: ABSENT: carotid bruit, JVD, lymphadenopathy, thyromegaly Respiratory exam: PRESENT: clear to auscultation andrew. ABSENT: rales, rhonchi, wheezes Cardiovascular exam: PRESENT: RRR. ABSENT: diastolic murmur, rubs, systolic murmur Pulses: PRESENT: normal dorsalis pedis pul Vascular exam: PRESENT: normal capillary refill GI/Abdominal exam: PRESENT: normal bowel sounds, soft. ABSENT: distended, guarding, mass, organolmegaly, rebound, tenderness Rectal exam: PRESENT: deferred Extremities exam: PRESENT: full ROM. ABSENT: calf tenderness, clubbing, pedal edema Musculoskeletal exam: PRESENT: ambulatory Neurological exam: PRESENT: alert, altered, CN II-XII grossly intact Psychiatric exam: PRESENT: appropriate affect, normal mood. ABSENT: homicidal ideation, suicidal ideation Skin exam: PRESENT: dry, intact, warm. ABSENT: cyanosis, rash Results Laboratory Results: 07/25/17 08:40 07/25/17 08:40 Sodium 137.9 Potassium 4.5 Chloride 105 Carbon Dioxide 19 L Anion Gap 14 BUN 21 H Creatinine 1.54 H Est GFR ( Amer) 38 L Est GFR (Non-Af Amer) 32 L Glucose 143 H Calcium 9.4 07/24/17 21:58 Troponin I 0.053 Assessment & Plan - Diagnosis (1) Dehydration Is this a current diagnosis for this admission?: Yes Plan: Improving with IV hydration (2) Encephalopathy acute Is this a current diagnosis for this admission?: Yes Plan: Close to her baseline. No infectious source (3) Type 2 diabetes mellitus Qualifiers: Diabetes mellitus special education coordinator insulin use: without special education coordinator use Is this a current diagnosis for this admission?: Yes (4) Dementia Qualifiers: Dementia type: Alzheimer's disease Alzheimer's disease onset: unspecified onset Is this a current diagnosis for this admission?: Yes - Time Time Spent with patient: 25-34 minutes Medications reviewed and adjusted accordingly: Yes Anticipated discharge: Home with Homehealth Within: within 24 hours
[2017-07-25] MEDS ORDERED: (PENDING PHARMACY ID) (Brinzolamide/Brimonidine Tart [Simbrinza 1%-0.2% Eye Drops] 1 DROP) OU SCH (18:00)
[2017-07-25] MEDS: LATANOPROST 0.005% OPH SOLN 2.5 ML OU SCH (21:53)
[2017-07-25] MEDS: DONEPEZIL HCL 5 MG TABLET PO SCH (21:53)
[2017-07-26] MEDS: LEVOTHYROXINE SODIUM 0.05 MG TABLET PO SCH (06:41)
[2017-07-26] MEDS: DEXTROSE 5%-1/2 NORMAL SALINE 1,000 ML IV PRN (06:42)
[2017-07-26 07:09] LABS: ANION GAP 10 (5-19); BLOOD UREA NITROGEN 21 mg/dL (7-20); CALCIUM 8.9 mg/dL (8.4-10.2); CARBON DIOXIDE 23 mmol/L (22-30); CHLORIDE 105 mmol/L (98-107); GLUCOSE 222 mg/dL (75-110); POTASSIUM 4.1 mmol/L (3.6-5.0); SODIUM 137.6 mmol/L (137-145)
[2017-07-26] MEDS: GLIPIZIDE XL 2.5 MG TAB.ER.24 PO SCH (08:32)
[2017-07-26] MEDS: DOCUSATE SODIUM 100 MG CAPSULE PO SCH (11:02)
[2017-07-26] MEDS: AMLODIPINE BESYLATE 5 MG TABLET PO SCH (11:03)
[2017-07-26] MEDS: CLOPIDOGREL BISULFATE 75 MG TABLET PO SCH (11:03)
[2017-07-26] MEDS: ENOXAPARIN SODIUM INJ 30 MG/0.3 ML DISP.SYRIN SUBCUT SCH (11:04)
[2017-07-26] MEDS: ATORVASTATIN CALCIUM 40 MG TABLET PO SCH (11:04)
--- NOTE | 2017-07-26 18:40 | PDOC PROGRESS REPORT ---
Subjective Progress Note for:: 07/26/17 Subjective:: Patient is aware that she is in the hospital. She feels better. Her appetite has not been very good and she has not been able to eat much. No chest pain or difficulty breathing. No acute pain. She is incontinent of stool and urine and wears a diaper. Reason For Visit: DEHYDRATION Physical Exam Vital Signs: Temp Pulse Resp BP Pulse Ox 98.0 F 86 18 156/46 H 100 07/26/17 15:18 07/26/17 15:18 07/26/17 15:18 07/26/17 15:18 07/26/17 15:18 Intake & Output 07/25/17 07/26/17 07/27/17 06:59 06:59 06:59 Intake Total 1327 400 Balance 1327 400 Weight 44.2 kg 44.3 kg General appearance: PRESENT: no acute distress, cooperative, thin Eye exam: PRESENT: conjunctiva pink, EOMI. ABSENT: scleral icterus Mouth exam: PRESENT: moist Neck exam: ABSENT: lymphadenopathy Respiratory exam: PRESENT: clear to auscultation andrew, unlabored. ABSENT: rales , rhonchi, wheezes Cardiovascular exam: PRESENT: RRR. ABSENT: systolic murmur Pulses: PRESENT: normal radial pulses GI/Abdominal exam: PRESENT: normal bowel sounds, soft. ABSENT: distended, guarding, tenderness Rectal exam: PRESENT: deferred Extremities exam: ABSENT: calf tenderness, pedal edema Neurological exam: PRESENT: alert, awake, oriented to person, oriented to place. ABSENT: oriented to time, oriented to situation Psychiatric exam: PRESENT: appropriate affect. ABSENT: anxious Skin exam: PRESENT: dry, warm Results Laboratory Results: 07/26/17 06:06 07/26/17 06:06 Sodium 137.6 Potassium 4.1 Chloride 105 Carbon Dioxide 23 Anion Gap 10 BUN 21 H Creatinine 1.34 H Est GFR ( Amer) 45 L Est GFR (Non-Af Amer) 37 L Glucose 222 H Calcium 8.9 07/24/17 21:58 Troponin I 0.053 Assessment & Plan - Diagnosis (1) Dehydration Is this a current diagnosis for this admission?: Yes Plan: Patient continues with IV fluids for rehydration. Her creatinine is improving. Her appetite is still poor. Her mental status seems to be returning closer to baseline with the rehydration. (2) Encephalopathy acute Is this a current diagnosis for this admission?: Yes Plan: In the setting of probably moderate dementia. Daughters were not at bedside. Will try to speak with them tomorrow about her baseline mental status and whether or not she is close to that. (3) Type 2 diabetes mellitus Qualifiers: Diabetes mellitus buttermaker continuous churn insulin use: without senior living use Is this a current diagnosis for this admission?: Yes Plan: We will continue current care. (4) Dementia Qualifiers: Dementia type: Alzheimer's disease Alzheimer's disease onset: unspecified onset Is this a current diagnosis for this admission?: Yes Plan: Will discuss with family safety issues at home to assure they have with a need. Continue donepezil. (5) Muscle spasm Is this a current diagnosis for this admission?: Yes Plan: Patient is not quite sure whether she has this or not. She is on both Flexeril and diazepam as needed. I will speak with her family about these medications as both of them can cause acute encephalopathy in older people and especially with dementia. - Time Time Spent with patient: 15-24 minutes Medications reviewed and adjusted accordingly: Yes
[2017-07-26 19:42] LABS: ANION GAP 9 (5-19); BLOOD UREA NITROGEN 18 mg/dL (7-20); CARBON DIOXIDE 22 mmol/L (22-30); CHLORIDE 107 mmol/L (98-107); GLUCOSE 272 mg/dL (75-110); POTASSIUM 4.1 mmol/L (3.6-5.0); SODIUM 138.4 mmol/L (137-145)
[2017-07-26] MEDS: DONEPEZIL HCL 5 MG TABLET PO SCH (21:53)
[2017-07-26] MEDS: LATANOPROST 0.005% OPH SOLN 2.5 ML OU SCH (21:53)
[2017-07-27] MEDS: DEXTROSE 5%-1/2 NORMAL SALINE 1,000 ML IV PRN (02:05)
[2017-07-27] MEDS: LEVOTHYROXINE SODIUM 0.05 MG TABLET PO SCH (05:53)
[2017-07-27] MEDS ORDERED: DEXTROSE 5%-1/2 NORMAL SALINE 1,000 ML IV PRN (07:28)
[2017-07-27] MEDS: GLIPIZIDE XL 2.5 MG TAB.ER.24 PO SCH (08:04)
[2017-07-27] MEDS: DOCUSATE SODIUM 100 MG CAPSULE PO SCH (09:24)
[2017-07-27] MEDS: ATORVASTATIN CALCIUM 40 MG TABLET PO SCH (09:25)
[2017-07-27] MEDS: AMLODIPINE BESYLATE 5 MG TABLET PO SCH (09:25)
[2017-07-27] MEDS: ENOXAPARIN SODIUM INJ 30 MG/0.3 ML DISP.SYRIN SUBCUT SCH (09:26)
[2017-07-27] MEDS: CLOPIDOGREL BISULFATE 75 MG TABLET PO SCH (09:26)
[2017-07-27] MEDS ORDERED: NORMAL SALINE 1000 ML 1,000 ML IV PRN (10:02)
[2017-07-27] MEDS ORDERED: GLUCAGON,HUMAN RECOMB 1 MG INJ IM PRN (10:03)
[2017-07-27] MEDS ORDERED: DEXTROSE 40% GEL 15 GM TUBE PO PRN ×2 (10:03)
[2017-07-27] MEDS ORDERED: DEXTROSE 50%-WATER 25 GM/50 ML DISP.SYRIN IV PRN ×2 (10:03)
[2017-07-27] MEDS ORDERED: SENNOSIDES/DOCUSATE 8.6-50 MG 1 EACH TABLET PO ONE (11:30)
[2017-07-27] MEDS ORDERED: BISACODYL 5 MG TABEC PO ONE (13:15)
[2017-07-27 14:04] LABS: ANION GAP 9 (5-19); BLOOD UREA NITROGEN 13 mg/dL (7-20); CALCIUM 9.1 mg/dL (8.4-10.2); CARBON DIOXIDE 22 mmol/L (22-30); CHLORIDE 107 mmol/L (98-107); GLUCOSE 309 mg/dL (75-110); POTASSIUM 4.1 mmol/L (3.6-5.0); SODIUM 138.2 mmol/L (137-145)
--- NOTE | 2017-07-27 15:14 | PDOC PROGRESS REPORT ---
Subjective Progress Note for:: 07/27/17 Subjective:: Patient is a little bit irritated today. She states that she has not had a bowel movement and would like to try whatever pill she uses at home for constipation. No chest pain or difficulty breathing. She does not like the food so she is not eating well. Mostly today she expressed her frustration with her living situation, the fact that she cannot live in [place] anymore and that she has to live with her daughter in [place]. Seem to understand why. I spoke with her daughter, extended discussion today related to this and daughter tells me that patient has several children in this area though they do not care for her and so she lives with her daughter in [place]. Her dementia has been progressing and she can no longer safely live alone. Reason For Visit: DEHYDRATION AND ACUTE METABLIC ENCEPHALOPATHY Physical Exam Vital Signs: Temp Pulse Resp BP Pulse Ox 97.8 F 85 16 149/44 H 100 07/27/17 11:39 07/27/17 11:39 07/27/17 11:39 07/27/17 11:39 07/27/17 11:39 Intake & Output 07/26/17 07/27/17 07/28/17 06:59 06:59 06:59 Intake Total 710 420 Balance 710 420 Weight 44.2 kg General appearance: PRESENT: no acute distress, cooperative, well-developed, well-nourished Head exam: PRESENT: atraumatic, normocephalic Eye exam: PRESENT: conjunctiva pink, EOMI. ABSENT: scleral icterus Ear exam: PRESENT: normal external ear exam Mouth exam: PRESENT: moist, neck supple Neck exam: ABSENT: lymphadenopathy Respiratory exam: PRESENT: clear to auscultation andrew, unlabored. ABSENT: rales , rhonchi, wheezes Cardiovascular exam: PRESENT: RRR. ABSENT: systolic murmur GI/Abdominal exam: PRESENT: normal bowel sounds, soft. ABSENT: distended, firm , tenderness Extremities exam: ABSENT: pedal edema, tenderness Neurological exam: PRESENT: alert, awake, oriented to person, oriented to place , CN II-XII grossly intact Psychiatric exam: PRESENT: appropriate affect. ABSENT: anxious Skin exam: PRESENT: dry, warm - 1 hours and is transverse and is Results Laboratory Results: 07/27/17 13:13 07/26/17 07/27/17 19:15 13:13 Sodium 138.4 138.2 Potassium 4.1 4.1 Chloride 107 107 Carbon Dioxide 22 22 Anion Gap 9 9 BUN 18 13 Creatinine 1.28 H 1.22 Est GFR ( Amer) 48 L 50 L Est GFR (Non-Af Amer) 39 L 42 L Glucose 272 H 309 H Calcium 9.0 9.1 Assessment & Plan - Diagnosis (1) Dehydration Is this a current diagnosis for this admission?: Yes Plan: Improving with IV fluid hydration. Her renal function is close to normal today. It is possible that this patient is not eating and drinking well related to her dementia. (2) Encephalopathy acute Is this a current diagnosis for this admission?: Yes Plan: I think that her acute encephalopathy, metabolic, is improved to probably her baseline. She seems to have Alzheimer's with behavioral disturbance. (3) Type 2 diabetes mellitus Qualifiers: Diabetes mellitus fci insulin use: without fci use Is this a current diagnosis for this admission?: Yes Plan: Continue her home medication. Monitor CBGs. Continue diabetic diet. Stop D5 fluids. (4) Dementia Qualifiers: Dementia type: Alzheimer's disease Alzheimer's disease onset: unspecified onset Is this a current diagnosis for this admission?: Yes Plan: This appears to be Alzheimer's dementia. Fast score is 6E with bowel and bladder incontinence. She has behavioral disturbance including lashing out at her daughter and refusing to take medications with some paranoia. Daughter can no longer care for her mother safely in her home. Daughter is requesting possible assistance with placement and so I will ask the case briefer to speak with daughter tomorrow. (5) Muscle spasm Is this a current diagnosis for this admission?: Yes Plan: Continue diazepam and Flexeril as needed. - Time Time Spent with patient: 25-34 minutes - Possible discharge to facility given her dementia. - Inpatient Certification Based on my medical assessment, after consideration of the patient's comorbidities, presenting symptoms, or acuity I expect that the services needed warrant INPATIENT care.: Yes I certify that my determination is in accordance with my understanding of Medicare's requirements for reasonable and necessary INPATIENT services [42 CFR 412.3e].: Yes Medical Necessity: Significant Comorbidiites Make Outpatient Treatment Too Risky , Need Close Monitoring Due to Risk of Patient Decompensation, Risk of Complication if Not Cared For in Hospital
[2017-07-27] MEDS: LATANOPROST 0.005% OPH SOLN 2.5 ML OU SCH (21:32)
[2017-07-27] MEDS: DONEPEZIL HCL 5 MG TABLET PO SCH (21:32)
[2017-07-28] MEDS: LEVOTHYROXINE SODIUM 0.05 MG TABLET PO SCH (05:40)
[2017-07-28] MEDS ORDERED: AMLODIPINE BESYLATE 5 MG TABLET PO SCH (07:50)
[2017-07-28] MEDS: GLIPIZIDE XL 2.5 MG TAB.ER.24 PO SCH (08:43)
[2017-07-28] MEDS: ATORVASTATIN CALCIUM 40 MG TABLET PO SCH (09:47)
[2017-07-28] MEDS: ENOXAPARIN SODIUM INJ 30 MG/0.3 ML DISP.SYRIN SUBCUT SCH (09:47)
[2017-07-28] MEDS: AMLODIPINE BESYLATE 10 MG TABLET PO SCH (09:47)
[2017-07-28] MEDS: CLOPIDOGREL BISULFATE 75 MG TABLET PO SCH (09:47)
--- NOTE | 2017-07-28 19:34 | PDOC PROGRESS REPORT ---
Subjective Progress Note for:: 07/28/17 Subjective:: Patient tells me today she really does not want to go into a facility. She also states that she is feeling well today. Eating and drinking okay though her appetite is never very good. No chest pain or difficulty breathing. No nausea vomiting or abdominal pain. She had a bowel movement this morning. Reason For Visit: DEHYDRATION AND ACUTE METABOLIC ENCEPHALOPATHY Physical Exam Vital Signs: Temp Pulse Resp BP Pulse Ox 98.1 F 81 18 157/50 H 100 07/28/17 11:47 07/28/17 11:47 07/28/17 11:47 07/28/17 11:47 07/28/17 11:47 Intake & Output 07/27/17 07/28/17 07/29/17 06:59 06:59 06:59 Intake Total 710 1807 1446 Balance 710 1807 1446 Weight 44.2 kg 44.3 kg General appearance: PRESENT: no acute distress, cooperative, well-developed, well-nourished Head exam: PRESENT: atraumatic, normocephalic Eye exam: PRESENT: EOMI Mouth exam: PRESENT: moist Respiratory exam: PRESENT: clear to auscultation andrew, unlabored. ABSENT: rales , rhonchi, wheezes Cardiovascular exam: PRESENT: RRR. ABSENT: systolic murmur Pulses: PRESENT: normal radial pulses GI/Abdominal exam: PRESENT: normal bowel sounds, soft. ABSENT: distended, guarding, tenderness Extremities exam: ABSENT: pedal edema Neurological exam: PRESENT: alert, awake, oriented to person, oriented to place , CN II-XII grossly intact. ABSENT: oriented to situation Psychiatric exam: PRESENT: appropriate affect. ABSENT: anxious Skin exam: PRESENT: dry, warm Results Laboratory Results: 07/27/17 13:13 Assessment & Plan - Diagnosis (1) Dehydration Is this a current diagnosis for this admission?: Yes Plan: Patient's BUN and creatinine have almost normalized. She has been on IV fluids. She had a prerenal acute kidney injury. She does not eat and drink well likely related to her dementia. I have decreased her IV fluid rate today. We will probably need to stop it tomorrow to see how she does without IV fluids. (2) Encephalopathy acute Is this a current diagnosis for this admission?: Yes Plan: She appears to be close to baseline per her daughter. She has advancing Alzheimer's dementia. (3) Type 2 diabetes mellitus Qualifiers: Diabetes mellitus drafting engineer insulin use: without mcc use Is this a current diagnosis for this admission?: Yes Plan: Continue current care. (4) Dementia Qualifiers: Dementia type: Alzheimer's disease Alzheimer's disease onset: unspecified onset Is this a current diagnosis for this admission?: Yes Plan: Secondary to dementia with behavioral disturbance patient's daughter does not feel that she can take care of her in the home. I have spoken with her discharge planning team and they will contact the daughter to talk about the possibility of placement. (5) Muscle spasm Is this a current diagnosis for this admission?: Yes Plan: Continue Flexeril as needed and diazepam as needed. These are her home medications. - Time Time Spent with patient: 15-24 minutes Medications reviewed and adjusted accordingly: Yes Anticipated discharge: SNF - Inpatient Certification Based on my medical assessment, after consideration of the patient's comorbidities, presenting symptoms, or acuity I expect that the services needed warrant INPATIENT care.: Yes I certify that my determination is in accordance with my understanding of Medicare's requirements for reasonable and necessary INPATIENT services [42 CFR 412.3e].: Yes Medical Necessity: Significant Comorbidiites Make Outpatient Treatment Too Risky , Risk of Complication if Not Cared For in Hospital
[2017-07-28] MEDS: NORMAL SALINE 1000 ML 1,000 ML IV PRN (20:29)
[2017-07-28] MEDS: LATANOPROST 0.005% OPH SOLN 2.5 ML OU SCH (22:53)
[2017-07-28] MEDS: DONEPEZIL HCL 5 MG TABLET PO SCH (22:53)
[2017-07-29] MEDS: LEVOTHYROXINE SODIUM 0.05 MG TABLET PO SCH (05:56)
[2017-07-29] MEDS: GLIPIZIDE XL 2.5 MG TAB.ER.24 PO SCH (08:45)
[2017-07-29] MEDS: CLOPIDOGREL BISULFATE 75 MG TABLET PO SCH (09:19)
[2017-07-29] MEDS: ATORVASTATIN CALCIUM 40 MG TABLET PO SCH (09:19)
[2017-07-29] MEDS: ENOXAPARIN SODIUM INJ 30 MG/0.3 ML DISP.SYRIN SUBCUT SCH (09:19)
[2017-07-29] MEDS: AMLODIPINE BESYLATE 10 MG TABLET PO SCH (10:21)
[2017-07-29] MEDS: NORMAL SALINE 1000 ML 1,000 ML IV PRN (10:41)
--- NOTE | 2017-07-29 16:59 | PDOC PROGRESS REPORT ---
Subjective Progress Note for:: 07/29/17 Subjective:: The patient is resting in a chair. Apparently there is some discord amongst the family about her disposition. There is the daughter who is the healthcare power of claims attorney he would like her to go to a facility in [place]. Other family members would like her to stay here. The patient he does have some mild underlying dementia would like to stay in the area. The social workers are working on it. Overall the patient is doing quite well. Her acute issues causing this hospitalization since resolved. She is stable for discharge. Reason For Visit: DEHYDRATION AND ACUTE METABOLIC ENCEPHALOPATHY Physical Exam Vital Signs: Temp Pulse Resp BP Pulse Ox 98.2 F 91 16 175/46 H 99 07/29/17 16:02 07/29/17 16:02 07/29/17 16:02 07/29/17 16:02 07/29/17 16:02 Intake & Output 07/28/17 07/29/17 07/30/17 06:59 06:59 06:59 Intake Total 1807 2066 240 Balance 1807 2066 240 Weight 44.3 kg 45 kg General appearance: PRESENT: no acute distress, well-developed, well-nourished Head exam: PRESENT: atraumatic, normocephalic Ear exam: PRESENT: normal external ear exam Mouth exam: PRESENT: moist, tongue midline Neck exam: ABSENT: carotid bruit, JVD, lymphadenopathy, thyromegaly Respiratory exam: PRESENT: clear to auscultation andrew. ABSENT: rales, rhonchi, wheezes Cardiovascular exam: PRESENT: RRR. ABSENT: diastolic murmur, rubs, systolic murmur GI/Abdominal exam: PRESENT: normal bowel sounds, soft. ABSENT: distended, guarding, mass, organolmegaly, rebound, tenderness Rectal exam: PRESENT: deferred Extremities exam: PRESENT: full ROM. ABSENT: calf tenderness, clubbing, pedal edema Neurological exam: PRESENT: alert, altered, awake, oriented to person. ABSENT: oriented to place, oriented to time, oriented to situation Psychiatric exam: PRESENT: appropriate affect, normal mood. ABSENT: homicidal ideation, suicidal ideation Skin exam: PRESENT: dry, intact, warm. ABSENT: cyanosis, rash Results Laboratory Results: 07/27/17 13:13 Assessment & Plan - Diagnosis (1) Acute renal failure Is this a current diagnosis for this admission?: Yes Plan: Secondary secondary to dehydration. Resolved (2) Encephalopathy acute Is this a current diagnosis for this admission?: Yes Plan: She is back to her cognitive baseline. Her encephalopathy was due to severe dehydration and acute renal failure. (3) Dehydration Is this a current diagnosis for this admission?: Yes Plan: Resolved with IV fluid hydration (4) Muscle spasm Is this a current diagnosis for this admission?: Yes Plan: Improving. No complaints today (5) Type 2 diabetes mellitus Qualifiers: Diabetes mellitus intermediate card tender insulin use: without intermediate card tender use Is this a current diagnosis for this admission?: Yes Plan: Stable on current regimen (7) Dementia Qualifiers: Dementia type: Alzheimer's disease Alzheimer's disease onset: unspecified onset Is this a current diagnosis for this admission?: Yes Plan: The patient is pleasantly demented. There are issues with her family situation that the discharge planners are trying to work out. (8) Full code status Is this a current diagnosis for this admission?: Yes - Time Time Spent with patient: 15-24 minutes - Inpatient Certification Medical Necessity: Other - Inpatient hospitalization remains necessary for disposition. Overall the patient is stable for discharge but there is some discrepancy in the family about where they want her to go. As soon as all of this is worked out she will be discharged.
[2017-07-29] MEDS: LATANOPROST 0.005% OPH SOLN 2.5 ML OU SCH (22:26)
[2017-07-29] MEDS: DONEPEZIL HCL 5 MG TABLET PO SCH (22:26)
[2017-07-30] MEDS: LEVOTHYROXINE SODIUM 0.05 MG TABLET PO SCH (05:39)
[2017-07-30] MEDS: GLIPIZIDE XL 2.5 MG TAB.ER.24 PO SCH (09:34)
[2017-07-30] MEDS: ATORVASTATIN CALCIUM 40 MG TABLET PO SCH (09:35)
[2017-07-30] MEDS: CLOPIDOGREL BISULFATE 75 MG TABLET PO SCH (09:35)
[2017-07-30] MEDS: AMLODIPINE BESYLATE 10 MG TABLET PO SCH (09:35)
[2017-07-30] MEDS: ENOXAPARIN SODIUM INJ 30 MG/0.3 ML DISP.SYRIN SUBCUT SCH (09:35)
[2017-07-30] MEDS ORDERED: DEXTROSE 50%-WATER SYRINGE 25 GM/50 ML DOSE IV PRN (18:14)
[2017-07-30] MEDS ORDERED: DEXTROSE 40% GEL 15 GM TUBE X 2 PO PRN (18:14)
[2017-07-30] MEDS ORDERED: DEXTROSE 50%-WATER SYRINGE 12.5 GM/25 ML DOSE IV PRN (18:14)
[2017-07-30] MEDS ORDERED: GLUCAGON,HUMAN RECOMB 1 MG INJ IM PRN (18:14)
[2017-07-30] MEDS ORDERED: DEXTROSE 40% GEL 15 GM TUBE PO PRN (18:14)
--- NOTE | 2017-07-30 18:17 | PDOC PROGRESS REPORT ---
Subjective Subjective:: The patient is an 87-year-old -Spanish female who was brought to the emergency room acutely encephalopathic. She was found to have evidence of acute renal failure and dehydration. Infection was ruled out. She was placed on IV fluids and she currently is back to her cognitive baseline. Her acute renal failure has resolved. The bigger problem at this point is her social issues. Apparently she has a daughter in [place] who is her healthcare power of quilting machine operator. Her daughter would like her placed in a skilled facility at in [place]. She states that the family that is local does not have the ability to care for her. The patient herself is back to her baseline. She is adamant that she does not want to move to [place]. She states that if she has to go to a [facility] facility she would like to go to one in the [facility] because this is where she has lived her entire life. Her other daughter and nephew are present in the room today. I have encouraged good communication and asked them to discuss the situation with the healthcare power of quilting machine operator in [place]. The patient herself is quite tearful and adamant that she does not want to go. She does have some minimal baseline confusion. However she seems to be quite reasonable and her thinking seems to be clear and she has does not seem to be confused as to what she wants to do. I have tried to get in touch with the discharge planners to discuss this but have not yet made contact today. The patient states that she thought that she was signing over her DURABLE POWER OF WINE MERCHANT to manage her financial affairs to her daughter and did not realize that she was going to be in charge of where she lived and her health care going forward. I do believe that further discussions need to be had with the involved family members and the patient's wishes do need to be taken into account. It may be very well be that the local family cannot care for her in the home setting and she needs to go to a [facility] facility. If this is the case I do believe her wishes could be granted and she could go to a facility locally. We may need to get psychiatry to get involved to see whether this patient is capable of making good decisions for herself if the family cannot come to some sort of agreement. Reason For Visit: DEHYDRATION AND ACUTE METABOLIC ENCEPHALOPATHY Physical Exam Vital Signs: Temp Pulse Resp BP Pulse Ox 97.8 F 88 16 153/47 H 100 07/30/17 15:26 07/30/17 15:26 07/30/17 15:26 07/30/17 15:26 07/30/17 15:26 Intake & Output 07/29/17 07/30/17 07/31/17 06:59 06:59 06:59 Intake Total 2065 1163 358 Balance 2065 1163 358 Weight 45 kg 45.2 kg General appearance: PRESENT: no acute distress, well-developed, well-nourished Head exam: PRESENT: atraumatic, normocephalic Mouth exam: PRESENT: moist, tongue midline Respiratory exam: PRESENT: clear to auscultation andrew. ABSENT: rales, rhonchi, wheezes Cardiovascular exam: PRESENT: RRR. ABSENT: diastolic murmur, rubs, systolic murmur GI/Abdominal exam: PRESENT: normal bowel sounds, soft. ABSENT: distended, guarding, mass, organolmegaly, rebound, tenderness Rectal exam: PRESENT: deferred Extremities exam: PRESENT: full ROM. ABSENT: calf tenderness, clubbing, pedal edema Neurological exam: PRESENT: alert, awake, oriented to person, oriented to place , oriented to situation, CN II-XII grossly intact. ABSENT: oriented to time, motor sensory deficit Psychiatric exam: PRESENT: anxious, appropriate affect, other - Tearful. ABSENT : homicidal ideation, suicidal ideation Skin exam: PRESENT: dry, intact, warm. ABSENT: cyanosis, rash Results Laboratory Results: 07/27/17 13:13 Assessment & Plan - Diagnosis (1) Acute renal failure Is this a current diagnosis for this admission?: Yes Plan: Secondary secondary to dehydration. Resolved (2) Encephalopathy acute Is this a current diagnosis for this admission?: Yes Plan: She is back to her cognitive baseline. Her encephalopathy was due to severe dehydration and acute renal failure. (3) Dehydration Is this a current diagnosis for this admission?: Yes Plan: Resolved with IV fluid hydration (4) Muscle spasm Is this a current diagnosis for this admission?: Yes Plan: Improving. No complaints today (5) Type 2 diabetes mellitus Qualifiers: Diabetes mellitus ferry terminal agent insulin use: without mcc use Is this a current diagnosis for this admission?: Yes (7) Dementia Qualifiers: Dementia type: Alzheimer's disease Alzheimer's disease onset: unspecified onset Is this a current diagnosis for this admission?: Yes Plan: The patient is oriented to person and place. She does not know what year it is. She can tell me what her address is how old she is and what her birthday is. She is able to tell me the names of family members present in the room. I am not sure what the answers to this but I do believe that she is cognitive enough that we need to take her wishes into consideration. We may need to get psychiatry involved to see whether she can make good decisions for herself. I have encouraged the family to start communicating. (8) Full code status Is this a current diagnosis for this admission?: Yes - Time Time Spent with patient: 35 or more minutes - Inpatient Certification Medical Necessity: Other - Inpatient hospitalization remains necessary for disposition. At this point there is quite a bit of discord in the family. There is a healthcare power of quilting machine operator who would like her to go to a skilled facility in [place]. I believe that further communication has to be had between the family. I do believe that the patient's wishes should be taken into consideration. We may need to get psychiatry involved.
[2017-07-30] MEDS: NORMAL SALINE 1000 ML 1,000 ML IV PRN (18:34)
[2017-07-30] MEDS: DONEPEZIL HCL 5 MG TABLET PO SCH (22:17)
[2017-07-30] MEDS: LATANOPROST 0.005% OPH SOLN 2.5 ML OU SCH (22:17)
[2017-07-31 05:16] LABS: ABSOLUTE BASOPHILS # (AUTO) 0.1 10^3/uL (0.0-0.2); ABSOLUTE EOSINOPHILS # (AUTO) 0.1 10^3/uL (0.0-0.6); ABSOLUTE MONOCYTES (AUTO) 0.5 10^3/uL (0.1-1.4); ABSOLUTE NEUT (AUTO) 2.8 10^3/uL (1.7-8.2); BASOPHILS % (AUTO) 1.9 % (0-2); EOSINOPHILS % (AUTO) 2.7 % (0-6); HEMATOCRIT 28.3 % (36.0-47.0); HEMOGLOBIN 9.6 g/dL (12.0-15.5); LYMPHOCYTES % (AUTO) 22.7 % (13-45); MEAN CORPUSCULAR HEMOGLOBIN 29.4 pg (27.0-33.4); MEAN CORPUSCULAR VOLUME 87 fl (80-97); MONOCYTES % (AUTO) 11.7 % (3-13); PLATELET COUNT 273 10^3/uL (150-450); RED BLOOD COUNT 3.27 10^6/uL (3.72-5.28); RED CELL DISTRIBUTION WIDTH 14.3 % (11.5-14.0); TOTAL CELLS COUNTED % (AUTO) 100 %; WHITE BLOOD COUNT 4.6 10^3/uL (4.0-10.5)
[2017-07-31] MEDS: LEVOTHYROXINE SODIUM 0.05 MG TABLET PO SCH (05:23)
[2017-07-31 05:34] LABS: ANION GAP 10 (5-19); BLOOD UREA NITROGEN 12 mg/dL (7-20); CALCIUM 8.8 mg/dL (8.4-10.2); CARBON DIOXIDE 23 mmol/L (22-30); CHLORIDE 112 mmol/L (98-107); GLUCOSE 137 mg/dL (75-110); POTASSIUM 3.7 mmol/L (3.6-5.0); SODIUM 144.9 mmol/L (137-145)
[2017-07-31] MEDS: GLIPIZIDE XL 2.5 MG TAB.ER.24 PO SCH (08:47)
[2017-07-31] MEDS: NORMAL SALINE 1000 ML 1,000 ML IV PRN (08:49)
[2017-07-31] MEDS: ENOXAPARIN SODIUM INJ 30 MG/0.3 ML DISP.SYRIN SUBCUT SCH (09:22)
[2017-07-31] MEDS: CLOPIDOGREL BISULFATE 75 MG TABLET PO SCH (09:23)
[2017-07-31] MEDS: ATORVASTATIN CALCIUM 40 MG TABLET PO SCH (09:23)
[2017-07-31] MEDS: AMLODIPINE BESYLATE 10 MG TABLET PO SCH (09:23)
[2017-07-31] MEDS: INSULIN LISPRO 100 UNIT/ML 3 ML VIAL SUBCUT PRN ×2 (13:15→21:08)
--- NOTE | 2017-07-31 17:53 | PDOC PROGRESS REPORT ---
Subjective Progress Note for:: 07/31/17 Subjective:: No new complaint Reason For Visit: DEHYDRATION AND ACUTE METABOLIC ENCEPHALOPATHY Physical Exam Vital Signs: Temp Pulse Resp BP Pulse Ox 98.4 F 85 14 145/54 H 99 07/31/17 16:07 07/31/17 16:07 07/31/17 16:07 07/31/17 16:07 07/31/17 16:07 Intake & Output 07/30/17 07/31/17 08/01/17 06:59 06:59 06:59 Intake Total 1163 1368 Balance 1163 1368 Weight 45.2 kg 50.1 kg General appearance: PRESENT: no acute distress Eye exam: PRESENT: conjunctiva pink, EOMI, PERRLA. ABSENT: scleral icterus Respiratory exam: PRESENT: clear to auscultation andrew. ABSENT: rales, rhonchi, wheezes Cardiovascular exam: PRESENT: RRR. ABSENT: diastolic murmur, rubs, systolic murmur Neurological exam: PRESENT: alert, awake Results Laboratory Results: 07/31/17 04:36 07/31/17 04:36 07/31/17 07/31/17 04:36 04:36 WBC 4.6 RBC 3.27 L Hgb 9.6 L Hct 28.3 L MCV 87 MCH 29.4 MCHC 34.0 RDW 14.3 H Plt Count 273 Seg Neutrophils % 61.0 Lymphocytes % 22.7 Monocytes % 11.7 Eosinophils % 2.7 Basophils % 1.9 Absolute Neutrophils 2.8 Absolute Lymphocytes 1.0 Absolute Monocytes 0.5 Absolute Eosinophils 0.1 Absolute Basophils 0.1 Sodium 144.9 Potassium 3.7 Chloride 112 H Carbon Dioxide 23 Anion Gap 10 BUN 12 Creatinine 1.13 Est GFR ( Amer) 55 L Est GFR (Non-Af Amer) 45 L Glucose 137 H Calcium 8.8 Magnesium 1.5 L Assessment & Plan - Diagnosis (1) Acute kidney injury Is this a current diagnosis for this admission?: Yes Plan: Her kidney function is improving her latest creatinine is 1.13. She is able to drink and tolerate well. The underlying cause for her acute kidney injury is dehydration. (3) Hypothyroidism Qualifiers: Hypothyroidism type: acquired Qualified Code(s): E03.9 - Hypothyroidism, unspecified Is this a current diagnosis for this admission?: Yes Plan: Continue Synthroid (4) Dementia Qualifiers: Dementia behavioral disturbance: without behavioral disturbance Is this a current diagnosis for this admission?: Yes Plan: Continue Aricept - Time Time Spent with patient: 15-24 minutes
[2017-07-31] MEDS: DONEPEZIL HCL 5 MG TABLET PO SCH (21:06)
[2017-07-31] MEDS: LATANOPROST 0.005% OPH SOLN 2.5 ML OU SCH (21:10)
[2017-08-01] MEDS: NORMAL SALINE 1000 ML 1,000 ML IV PRN ×2 (01:40→17:45)
[2017-08-01] MEDS: LEVOTHYROXINE SODIUM 0.05 MG TABLET PO SCH (06:42)
[2017-08-01] MEDS: GLIPIZIDE XL 2.5 MG TAB.ER.24 PO SCH (08:31)
[2017-08-01] MEDS: AMLODIPINE BESYLATE 10 MG TABLET PO SCH (11:09)
[2017-08-01] MEDS: CLOPIDOGREL BISULFATE 75 MG TABLET PO SCH (11:10)
[2017-08-01] MEDS: ATORVASTATIN CALCIUM 40 MG TABLET PO SCH (11:10)
[2017-08-01] MEDS: ENOXAPARIN SODIUM INJ 30 MG/0.3 ML DISP.SYRIN SUBCUT SCH (11:10)
--- NOTE | 2017-08-01 15:05 | PDOC PROGRESS REPORT ---
Subjective Progress Note for:: 08/01/17 Subjective:: No new complaint Reason For Visit: DEHYDRATION AND ACUTE METABOLIC ENCEPHALOPATHY Physical Exam Vital Signs: Temp Pulse Resp BP Pulse Ox 98.3 F 93 16 150/48 H 99 08/01/17 12:00 08/01/17 12:00 08/01/17 12:00 08/01/17 12:00 08/01/17 12:00 Intake & Output 07/31/17 08/01/17 08/02/17 06:59 06:59 06:59 Intake Total 1368 2098 Balance 1368 2098 Weight 50.1 kg 51.6 kg General appearance: PRESENT: no acute distress, well-developed, well-nourished Head exam: PRESENT: atraumatic, normocephalic Respiratory exam: PRESENT: clear to auscultation andrew. ABSENT: rales, rhonchi, wheezes Cardiovascular exam: PRESENT: RRR. ABSENT: diastolic murmur, rubs, systolic murmur Results Laboratory Results: 07/31/17 04:36 07/31/17 04:36 Assessment & Plan - Diagnosis (1) Acute kidney injury Is this a current diagnosis for this admission?: Yes Plan: Her kidney function is improving her latest creatinine is 1.13. She is able to drink and tolerate well. Patient is drinking and eating well and she tolerates well. (3) Hypothyroidism Qualifiers: Hypothyroidism type: acquired Qualified Code(s): E03.9 - Hypothyroidism, unspecified Is this a current diagnosis for this admission?: Yes Plan: Continue Synthroid (4) Dementia Qualifiers: Dementia behavioral disturbance: without behavioral disturbance Is this a current diagnosis for this admission?: Yes Plan: Continue Aricept - Time Time Spent with patient: 15-24 minutes
[2017-08-01] MEDS ORDERED: MAGNESIUM HYDROXIDE SUSP 30 ML UDCUP PO ONE (18:30)
[2017-08-01] MEDS: DOCUSATE SODIUM 100 MG CAPSULE PO SCH (18:56)
[2017-08-01] MEDS: DONEPEZIL HCL 5 MG TABLET PO SCH (22:26)
[2017-08-01] MEDS: LATANOPROST 0.005% OPH SOLN 2.5 ML OU SCH (22:26)
[2017-08-02] MEDS: LEVOTHYROXINE SODIUM 0.05 MG TABLET PO SCH (05:55)
[2017-08-02] MEDS: AMLODIPINE BESYLATE 10 MG TABLET PO SCH (10:21)
[2017-08-02] MEDS: DOCUSATE SODIUM 100 MG CAPSULE PO SCH ×2 (10:21→17:37)
[2017-08-02] MEDS: ENOXAPARIN SODIUM INJ 30 MG/0.3 ML DISP.SYRIN SUBCUT SCH (10:22)
[2017-08-02] MEDS: ATORVASTATIN CALCIUM 40 MG TABLET PO SCH (10:22)
[2017-08-02] MEDS: CLOPIDOGREL BISULFATE 75 MG TABLET PO SCH (10:22)
[2017-08-02] MEDS: GLIPIZIDE XL 2.5 MG TAB.ER.24 PO SCH (10:22)
--- NOTE | 2017-08-02 13:02 | PDOC PROGRESS REPORT ---
Subjective Progress Note for:: 08/02/17 Subjective:: No significant change overnight. Reason For Visit: DEHYDRATION AND ACUTE METABOLIC ENCEPHALOPATHY Physical Exam Vital Signs: Temp Pulse Resp BP Pulse Ox 97.8 F 88 12 158/65 H 100 08/02/17 11:00 08/02/17 11:00 08/02/17 11:00 08/02/17 11:00 08/02/17 11:00 Intake & Output 08/01/17 08/02/17 08/03/17 06:59 06:59 06:59 Intake Total 8 1492 Balance 8 1492 Weight 51.6 kg 50.2 kg Results Laboratory Results: 07/31/17 04:36 07/31/17 04:36 Assessment & Plan - Diagnosis (1) Acute kidney injury Is this a current diagnosis for this admission?: Yes Plan: Her kidney function is improving her latest creatinine is 1.13. She is able to drink and tolerate well. Patient is drinking and eating well and she tolerates well. (2) Diabetes 1.5, managed as type 2 Is this a current diagnosis for this admission?: Yes (3) Hypothyroidism Qualifiers: Hypothyroidism type: acquired Qualified Code(s): E03.9 - Hypothyroidism, unspecified Is this a current diagnosis for this admission?: Yes Plan: Continue Synthroid (4) Dementia Qualifiers: Dementia behavioral disturbance: without behavioral disturbance Is this a current diagnosis for this admission?: Yes Plan: Continue Aricept - Time Time Spent with patient: Less than 15 minutes
[2017-08-02] MEDS: INSULIN LISPRO 100 UNIT/ML 3 ML VIAL SUBCUT PRN (17:37)
[2017-08-02] MEDS: DONEPEZIL HCL 5 MG TABLET PO SCH (22:12)
[2017-08-02] MEDS: LATANOPROST 0.005% OPH SOLN 2.5 ML OU SCH (22:13)
[2017-08-03] MEDS: LEVOTHYROXINE SODIUM 0.05 MG TABLET PO SCH (05:34)
[2017-08-03] MEDS: GLIPIZIDE XL 2.5 MG TAB.ER.24 PO SCH (11:05)
[2017-08-03] MEDS: DOCUSATE SODIUM 100 MG CAPSULE PO SCH ×2 (11:06→17:39)
[2017-08-03] MEDS: AMLODIPINE BESYLATE 10 MG TABLET PO SCH (11:06)
[2017-08-03] MEDS: ENOXAPARIN SODIUM INJ 30 MG/0.3 ML DISP.SYRIN SUBCUT SCH (11:07)
[2017-08-03] MEDS: ATORVASTATIN CALCIUM 40 MG TABLET PO SCH (11:07)
[2017-08-03] MEDS: CLOPIDOGREL BISULFATE 75 MG TABLET PO SCH (11:07)
--- NOTE | 2017-08-03 14:33 | PDOC PROGRESS REPORT ---
Subjective Progress Note for:: 08/03/17 Subjective:: No new development Reason For Visit: DEHYDRATION AND ACUTE METABOLIC ENCEPHALOPATHY Physical Exam Vital Signs: Temp Pulse Resp BP Pulse Ox 98.2 F 82 16 148/42 H 99 08/03/17 11:29 08/03/17 11:29 08/03/17 11:29 08/03/17 11:29 08/03/17 11:29 Intake & Output 08/02/17 08/03/17 08/04/17 06:59 06:59 06:59 Intake Total 1492 916 Balance 1492 916 Weight 50.2 kg 50.1 kg General appearance: PRESENT: no acute distress, well-developed, well-nourished Head exam: PRESENT: atraumatic, normocephalic Eye exam: PRESENT: conjunctiva pink, EOMI, PERRLA. ABSENT: scleral icterus Ear exam: PRESENT: normal external ear exam Mouth exam: PRESENT: moist, tongue midline Neck exam: ABSENT: carotid bruit, JVD, lymphadenopathy, thyromegaly Respiratory exam: PRESENT: clear to auscultation andrew. ABSENT: rales, rhonchi, wheezes Cardiovascular exam: PRESENT: RRR. ABSENT: diastolic murmur, rubs, systolic murmur Pulses: PRESENT: normal dorsalis pedis pul Vascular exam: PRESENT: normal capillary refill GI/Abdominal exam: PRESENT: normal bowel sounds, soft. ABSENT: distended, guarding, mass, organolmegaly, rebound, tenderness Rectal exam: PRESENT: deferred Extremities exam: PRESENT: full ROM. ABSENT: calf tenderness, clubbing, pedal edema Neurological exam: PRESENT: alert, awake, oriented to person, oriented to place , oriented to time, oriented to situation, CN II-XII grossly intact. ABSENT: motor sensory deficit Psychiatric exam: PRESENT: appropriate affect, normal mood. ABSENT: homicidal ideation, suicidal ideation Skin exam: PRESENT: dry, intact, warm. ABSENT: cyanosis, rash Results Laboratory Results: 07/31/17 04:36 07/31/17 04:36 Assessment & Plan - Diagnosis (1) Acute kidney injury Is this a current diagnosis for this admission?: Yes Plan: Her kidney function is improving her latest creatinine is 1.13. She is able to drink and tolerate well. Patient is drinking and eating well and she tolerates well. (2) Diabetes 1.5, managed as type 2 Is this a current diagnosis for this admission?: Yes Plan: Continue current regimen (3) Hypothyroidism Qualifiers: Hypothyroidism type: acquired Qualified Code(s): E03.9 - Hypothyroidism, unspecified Is this a current diagnosis for this admission?: Yes (4) Dementia Qualifiers: Dementia behavioral disturbance: without behavioral disturbance Is this a current diagnosis for this admission?: Yes
[2017-08-03] MEDS: INSULIN LISPRO 100 UNIT/ML 3 ML VIAL SUBCUT PRN (16:45)
[2017-08-03] MEDS: LATANOPROST 0.005% OPH SOLN 2.5 ML OU SCH (22:50)
[2017-08-03] MEDS: DONEPEZIL HCL 5 MG TABLET PO SCH (22:50)
[2017-08-04] MEDS: LEVOTHYROXINE SODIUM 0.05 MG TABLET PO SCH (05:42)
[2017-08-04] MEDS: ATORVASTATIN CALCIUM 40 MG TABLET PO SCH (09:33)
[2017-08-04] MEDS: GLIPIZIDE XL 2.5 MG TAB.ER.24 PO SCH (09:33)
[2017-08-04] MEDS: AMLODIPINE BESYLATE 10 MG TABLET PO SCH (09:33)
[2017-08-04] MEDS: CLOPIDOGREL BISULFATE 75 MG TABLET PO SCH (09:33)
[2017-08-04] MEDS: DOCUSATE SODIUM 100 MG CAPSULE PO SCH ×2 (09:33→17:08)
[2017-08-04] MEDS: ENOXAPARIN SODIUM INJ 30 MG/0.3 ML DISP.SYRIN SUBCUT SCH (09:33)
--- NOTE | 2017-08-04 15:07 | PDOC PROGRESS REPORT ---
Subjective Progress Note for:: 08/04/17 Subjective:: The patient is an 87-year-old -[place] female who was brought to the emergency room acutely encephalopathic. She was found to have evidence of acute renal failure and dehydration. Currently the patient is at her baseline. Apparently she has a daughter in [place] who is her healthcare power of benefits consultant who has been trying to get for her shelter close to home in [place]. Soon as bed is available patient can be discharged safely. Reason For Visit: DEHYDRATION AND ACUTE METABOLIC ENCEPHALOPATHY Physical Exam Vital Signs: Temp Pulse Resp BP Pulse Ox 97.7 F 88 20 167/47 H 99 08/04/17 11:08 08/04/17 11:08 08/04/17 11:08 08/04/17 11:08 08/04/17 11:08 Intake & Output 08/03/17 08/04/17 08/05/17 06:59 06:59 06:59 Intake Total 916 1258 Output Total 7 Balance 916 1251 Weight 50.1 kg 51.6 kg General appearance: PRESENT: no acute distress, well-developed, well-nourished Eye exam: PRESENT: conjunctiva pink, EOMI, PERRLA. ABSENT: scleral icterus Respiratory exam: PRESENT: clear to auscultation andrew. ABSENT: rales, rhonchi, wheezes Cardiovascular exam: PRESENT: RRR. ABSENT: diastolic murmur, rubs, systolic murmur Results Laboratory Results: 07/31/17 04:36 07/31/17 04:36 Assessment & Plan - Diagnosis (1) Acute kidney injury Is this a current diagnosis for this admission?: Yes Plan: Her kidney function is improving her latest creatinine is 1.13. She is able to drink and tolerate well. Patient is drinking and eating well and she tolerates well. (2) Diabetes 1.5, managed as type 2 Is this a current diagnosis for this admission?: Yes (3) Hypothyroidism Qualifiers: Hypothyroidism type: acquired Qualified Code(s): E03.9 - Hypothyroidism, unspecified Is this a current diagnosis for this admission?: Yes Plan: Continue Synthroid (4) Dementia Qualifiers: Dementia behavioral disturbance: without behavioral disturbance Is this a current diagnosis for this admission?: Yes Plan: Continue Aricept
[2017-08-04] MEDS: LATANOPROST 0.005% OPH SOLN 2.5 ML OU SCH (22:39)
[2017-08-04] MEDS: DONEPEZIL HCL 5 MG TABLET PO SCH (22:39)
[2017-08-05] MEDS: LEVOTHYROXINE SODIUM 0.05 MG TABLET PO SCH (06:15)
[2017-08-05] MEDS: AMLODIPINE BESYLATE 10 MG TABLET PO SCH (09:03)
[2017-08-05] MEDS: DOCUSATE SODIUM 100 MG CAPSULE PO SCH ×2 (09:03→18:28)
[2017-08-05] MEDS: GLIPIZIDE XL 2.5 MG TAB.ER.24 PO SCH (09:03)
[2017-08-05] MEDS: ATORVASTATIN CALCIUM 40 MG TABLET PO SCH (09:03)
[2017-08-05] MEDS: CLOPIDOGREL BISULFATE 75 MG TABLET PO SCH (09:03)
[2017-08-05] MEDS ORDERED: TUBERCULIN,PURIF.PROT.DERIV. 5 TU/0.1 ML TEST 1 ML VIAL ID PRN (12:00)
[2017-08-05] MEDS: ENOXAPARIN SODIUM INJ 30 MG/0.3 ML DISP.SYRIN SUBCUT SCH (12:28)
--- NOTE | 2017-08-05 16:14 | PDOC PROGRESS REPORT ---
Subjective Progress Note for:: 08/05/17 Subjective:: Somewhat agitated. States she does not want to go to [place], states her daughter has got her all riled up. She has a rather long convoluted history about her current circumstances, that do not appear to be cogent. Reason For Visit: DEHYDRATION AND ACUTE METABOLIC ENCEPHALOPATHY Physical Exam Vital Signs: Temp Pulse Resp BP Pulse Ox 97.9 F 85 16 166/55 H 100 08/05/17 00:00 08/05/17 00:00 08/05/17 00:00 08/05/17 00:00 08/05/17 00:00 Intake & Output 08/04/17 08/05/17 08/06/17 06:59 06:59 06:59 Intake Total 1258 800 Output Total 7 Balance 1251 800 Weight 51.6 kg 49.1 kg General appearance: PRESENT: no acute distress, thin Respiratory exam: PRESENT: clear to auscultation andrew Cardiovascular exam: PRESENT: RRR GI/Abdominal exam: PRESENT: soft Extremities exam: ABSENT: pedal edema Neurological exam: PRESENT: alert, oriented to person, oriented to place, CN II- XII grossly intact. 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 No further workup. Stable (3) Dementia Qualifiers: Dementia type: Alzheimer's disease Dementia behavioral disturbance: without behavioral disturbance Is this a current diagnosis for this admission?: Yes Plan: Case management is working on placement. She is not safe to live alone. (4) Diabetes 1.5, managed as type 2 Is this a current diagnosis for this admission?: Yes Plan: Continue present management
--- NOTE | 2017-08-05 17:55 | RADIOLOGY REPORT (SQ) ---
EXAM DESCRIPTION: CHEST SINGLE VIEW COMPLETED DATE/TIME: 08/05/2017 5:13 pm REASON FOR STUDY: R/O TB COMPARISON: 10/26/2016 EXAM PARAMETERS: NUMBER OF VIEWS: One view. TECHNIQUE: Single frontal radiographic view of the chest acquired. RADIATION DOSE: NA LIMITATIONS: None. FINDINGS: LUNGS AND PLEURA: No opacities, masses or pneumothorax. No pleural effusion. MEDIASTINUM AND HILAR STRUCTURES: No masses. Contour normal. HEART AND VASCULAR STRUCTURES: Heart normal in size. Normal vasculature. BONES: No acute findings. HARDWARE: None in the chest. OTHER: No other significant finding. IMPRESSION: NO ACUTE RADIOGRAPHIC FINDING IN THE CHEST. TECHNICAL DOCUMENTATION: JOB ID: [id number] [email or web address]- All Rights Reserved Reading location - IP/workstation name: [email or web address]
[2017-08-05] MEDS: DONEPEZIL HCL 5 MG TABLET PO SCH (22:57)
[2017-08-05] MEDS: LATANOPROST 0.005% OPH SOLN 2.5 ML OU SCH (22:57)
[2017-08-06] MEDS: LEVOTHYROXINE SODIUM 0.05 MG TABLET PO SCH (06:37)
[2017-08-06] MEDS: ENOXAPARIN SODIUM INJ 30 MG/0.3 ML DISP.SYRIN SUBCUT SCH (09:11)
[2017-08-06] MEDS: CLOPIDOGREL BISULFATE 75 MG TABLET PO SCH (09:12)
[2017-08-06] MEDS: AMLODIPINE BESYLATE 10 MG TABLET PO SCH (09:12)
[2017-08-06] MEDS: DOCUSATE SODIUM 100 MG CAPSULE PO SCH (09:12)
[2017-08-06] MEDS: ATORVASTATIN CALCIUM 40 MG TABLET PO SCH (09:12)
[2017-08-06] MEDS: GLIPIZIDE XL 2.5 MG TAB.ER.24 PO SCH (09:12)
[2017-08-06 12:19] VITALS: BP 144/37
--- NOTE | 2017-08-06 12:19 | PDOC TRANSFER SUMMARY ---
General - Admit/Disc Date/PCP Admission Date/Primary Care Provider: 07/26/17 18:45 Discharge Date: 08/06/17 - Discharge Diagnosis (1) Acute kidney injury Is this a current diagnosis for this admission?: Yes Summary: Resolved with fluid (2) Anemia Is this a current diagnosis for this admission?: Yes Summary: Age-related. Stable (3) Dementia Is this a current diagnosis for this admission?: Yes Summary: Continue Aricept (4) Diabetes 1.5, managed as type 2 Is this a current diagnosis for this admission?: Yes Summary: Continue home medications. Stable - Additional Information Resuscitation Status: Full Code Discharge Diet: Regular Discharge Activity: Activity As Tolerated Home Medications: Atorvastatin Calcium [Lipitor 40 mg Tablet] 40 mg PO DAILY 07/25/17 Brinzolamide/Brimonidine Tart [Simbrinza 1%-0.2% Eye Drops] 1 drop OU TID Clopidogrel Bisulfate [Plavix 75 mg Tablet] 75 mg PO DAILY 07/25/17 Cyclobenzaprine HCl [Flexeril 5 mg Tablet] 5 mg PO HSP PRN 07/25/17 Diazepam [Valium 5 mg Tablet] 5 mg PO Q12HP PRN 07/25/17 Donepezil HCl [Aricept 5 mg Tablet] 5 mg PO QHS 07/25/17 Gabapentin [Neurontin 100 mg Capsule] 100 mg PO Q8HP PRN 07/25/17 Glipizide [Glipizide ER] 2.5 mg PO QAM 07/25/17 Latanoprost [Xalatan 0.005% Oph Soln 2.5 ml] 1 drop OU QHS 07/25/17 Levothyroxine Sodium [Synthroid 0.05 mg Tablet] 50 mcg PO Q6AM 07/25/17 Amlodipine Besylate [Norvasc 10 mg Tablet] 10 mg PO DAILY tablet 08/06/17 Docusate Sodium [Colace 100 mg Capsule] 100 mg PO BID capsule 08/06/17 History of Present Illness Admission Date/PCP: 07/26/17 18:45 Patient complains of: Confusion, noncompliance with medications History of Present Illness: AGUSTINA HURD is a 87 year old female who presents to emergency room apparently after having been seen last night in the ER with a diagnosis of UTI. She was prescribed Macrobid but the prescription was not filled. It appears that her daughter was worried about mother's behavior as she has become more combative. She was seen by psych in the emergency room and that she has been cleared from any acute psychosis. Patient was very pleasant when I saw although unable to tell me any information. Psychiatrist suggested avoiding benzodiazepines, narcotics. Steroids and all the agents. Urinalysis shows no evidence of any infection patient has 0 WBCs negative nitrite and negative leukocyte esterase. Her white count is 6000 and aside from a blood glucose of 262 and a creatinine of 1.6 all her other labs are pretty good Hospital Course Hospital Course: Hospital course: She was gently rehydrated, creatinine came down from 1.61-1.13 , sedating medications were avoided. For the most part she has been very pleasant, she gets upset around her daughter. We have been working with the daughter to arrange suitable placement, that has been arranged, and she will be transferred there today. Physical Exam Vital Signs: Temp Pulse Resp BP Pulse Ox 97.9 F 84 20 148/47 H 99 08/06/17 07:44 08/06/17 07:44 08/06/17 07:44 08/06/17 07:44 08/06/17 07:44 Intake & Output 08/05/17 08/06/17 08/07/17 06:59 06:59 06:59 Intake Total 800 410 Balance 800 410 Weight 49.1 kg 50.2 kg General appearance: PRESENT: no acute distress, cooperative, thin Respiratory exam: PRESENT: clear to auscultation andrew Cardiovascular exam: PRESENT: RRR GI/Abdominal exam: PRESENT: soft Neurological exam: PRESENT: alert, oriented to person, oriented to place, CN II- XII grossly intact. ABSENT: oriented to time, oriented to situation Psychiatric exam: PRESENT: normal mood Skin exam: PRESENT: warm Results Laboratory Results: 07/31/17 04:36 07/31/17 04:36 Impressions: Chest X-Ray 08/05/17 15:40 IMPRESSION: NO ACUTE RADIOGRAPHIC FINDING IN THE CHEST. Transfer Plan - Disposition Transfer Plan: Transfer to [facility] by qualified personnel Qualifiers - * [facility] BEING DISCHARGED WITH ANY OF THE FOLLOWING DIAGNOSIS?: No
== END 2017-08-06 12:25 | disposition home health service (06) | DRG 682 ==
LOC: ER 13:13 → EH 17:32 → INTOOBSV 17:32 → 4S 20:20 → OBSVTOIN 07-26 18:45
PROVIDERS: ADMIT Family Medicine; ATTEND Family Medicine
DX: N17.9 Acute kidney failure, unspecified (principal); G93.41 Metabolic encephalopathy; D61.89 Other specified aplastic anemias and other bone marrow failure syndromes; F02.81 Dementia in other diseases classified elsewhere, unspecified severity, with behavioral disturbance; N30.00 Acute cystitis without hematuria; E86.0 Dehydration; F03.90 Unspecified dementia, unspecified severity, without behavioral disturbance, psychotic disturbance, mood disturbance, and anxiety; E78.00 Pure hypercholesterolemia, unspecified; F32.9 Major depressive disorder, single episode, unspecified; G30.9 Alzheimer's disease, unspecified; M62.838 Other muscle spasm; Z60.8 Other problems related to social environment; E03.9 Hypothyroidism, unspecified; E11.22 Type 2 diabetes mellitus with diabetic chronic kidney disease; N18.9 Chronic kidney disease, unspecified; D63.1 Anemia in chronic kidney disease; Z60.2 Problems related to living alone; Z79.899 Other long term (current) drug therapy; Z91.19 Patient's noncompliance with other medical treatment and regimen; Z90.49 Acquired absence of other specified parts of digestive tract; Z90.710 Acquired absence of both cervix and uterus; Z88.3 Allergy status to other anti-infective agents; Z88.0 Allergy status to penicillin; Z88.2 Allergy status to sulfonamides; Z74.01 Bed confinement status; Z91.14 Patient's other noncompliance with medication regimen
CPT/HCPCS: 36415; 51701; 70450; 71045; 80048; 80053; 81001; 82550; 82553; 82962; 83605; 83735; 84484; 85025; 85610; 85730; 87040; 87086; 87088; 87186; 93005; 93010; 99285; G0378; J1650; J1815; J3370; J3490; J7030; J8499